=== PATIENT | female | born 1975 | race African-American/Black ===

== ENCOUNTER 2016-12-29 01:20 | Emergency (ER) | payer BC ==
[2016-12-29] MEDS ORDERED: NORMAL SALINE 1000 ML 1,000 ML IV ONE (05:00)
[2016-12-29] MEDS ORDERED: ONDANSETRON HCL INJ/PF 4 MG/2 ML SDV IV ONE (05:00)
--- NOTE | 2016-12-29 05:02 | ER Document Report ---
ED General - General Chief Complaint: Abdominal Pain Stated Complaint: CHEST PAIN/ABDOMINAL PAIN Time seen by provider: 05:00 Notes: Patient is a 41-year-old female that comes emergency department for chief complaint of vomiting, pain in her upper abdomen, and body aches for 2 days. Patient states 2 days ago she also had a fever. Patient denies flank pain, dysuria, chest pain, hematemesis or hematochezia. Patient states she is currently being treated for H. pylori. [facility] this week. TRAVEL OUTSIDE OF THE [place] IN LAST 30 DAYS: No - Related Data Allergies/Adverse Reactions: No Known Allergies Allergy (Unverified 03/19/13 07:08) Past Medical History - General Information source: Patient - Social History Smoking Status: Never Smoker Frequency of alcohol use: None Drug Abuse: None Lives with: Family Family History: Reviewed & Not Pertinent Patient has suicidal ideation: No Patient has homicidal ideation: No - Past Medical History Cardiac Medical History: Reports: Hx Hypertension Endocrine Medical History: Reports: Hx Diabetes Mellitus Type 2 Renal/ Medical History: Denies: Hx Peritoneal Dialysis Past Surgical History: Reports: Hx Appendectomy, Hx Section - Immunizations Hx Diphtheria, Pertussis, Tetanus Vaccination: Yes - 2011 Review of Systems - Review of Systems Constitutional: See HPI EENT: No symptoms reported Cardiovascular: No symptoms reported Respiratory: No symptoms reported Gastrointestinal: See HPI Genitourinary: No symptoms reported Female Genitourinary: No symptoms reported Musculoskeletal: No symptoms reported Skin: No symptoms reported Hematologic/Lymphatic: No symptoms reported Neurological/Psychological: No symptoms reported Physical Exam - Vital signs Vitals: Temp Pulse Resp BP Pulse Ox 97.9 F 81 16 139/105 H 97 12/29/16 01:37 12/29/16 01:37 12/29/16 01:37 12/29/16 01:37 12/29/16 01:37 Interpretation: Normal - General General appearance: Appears well, Alert In distress: None - HEENT Head: Normocephalic, Atraumatic Eyes: Normal Conjunctiva: Normal Extraocular movements intact: Yes Eyelashes: Normal Pupils: PERRL Sinus: Normal Nasal: Normal Mouth/Lips: Normal Mucous membranes: Normal Pharynx: Normal Neck: Normal - Respiratory Respiratory status: No respiratory distress Chest status: Nontender Breath sounds: Normal. No: Decreased air movement, Wheezing Chest palpation: Normal - Cardiovascular Rhythm: Regular, Tachycardia Heart sounds: Normal auscultation, S1 appreciated, S2 appreciated Murmur: No - Abdominal Inspection: Normal Distension: No distension Bowel sounds: Normal Tenderness: Tender - There is some generalized upper abdominal tenderness, nonspecific, no guarding. No: Sam's sign, Guarding - Back Back: Normal, Nontender. No: Tender, CVA tenderness - Extremities General upper extremity: Normal inspection, Nontender, Normal color, Normal ROM , Normal temperature General lower extremity: Normal inspection, Nontender, Normal color, Normal ROM , Normal temperature, Normal weight bearing. No: Mira's sign - Neurological Neuro grossly intact: Yes Cognition: Normal Orientation: AAOx4 [place] Coma Scale Eye Opening: Spontaneous Ramu Coma Scale Verbal: Oriented [place] Coma Scale Motor: Obeys Commands Ramu Coma Scale Total: 15 Speech: Normal Motor strength normal: LUE, RUE, LLE, RLE Sensory: Normal - Psychological Associated symptoms: Normal affect, Normal mood - Skin Skin Temperature: Warm Skin Moisture: Dry Skin Color: Normal Course - Re-evaluation Re-evalutation: Patient is very mild epigastric tenderness on exam, otherwise unremarkable abdomen, she is alert, she is well-appearing, no tachycardia, no hypotension, no fever. CBC unremarkable, urinalysis shows slightly elevated specific gravity and is otherwise unremarkable. Influenza negative. Chemistries unremarkable. Lipase is unremarkable. Patient well appearing on reexamination after IV fluids and medications. Discussed workup. Patient could have a viral syndrome, concerning abnormalities noted, very low suspicion of acute abdomen. Providing symptom management, discussed primary care follow-up and return precautions. Patient states understanding and agreement. - Vital Signs Vital signs: Temp Pulse Resp BP Pulse Ox 97.4 F 68 18 116/67 97 12/29/16 08:42 12/29/16 08:42 12/29/16 08:42 12/29/16 08:42 12/29/16 08:42 - Laboratory Result Diagrams: 12/29/16 04:57 12/29/16 07:30 Laboratory results interpreted by me: 12/29/16 12/29/16 04:57 07:30 RDW 14.3 H Monocytes % 13.4 H Sodium 135.8 L Discharge - Discharge Clinical Impression: Abdominal pain Qualifiers: Abdominal location: upper abdomen, unspecified Qualified Code(s): R10.10 - Upper abdominal pain, unspecified Vomiting Qualifiers: Vomiting type: unspecified Vomiting Intractability: non-intractable Nausea presence: with nausea Qualified Code(s): R11.2 - Nausea with vomiting, unspecified Condition: Stable Disposition: HOME, SELF-CARE Additional Instructions: Your lab workup shows some dehydration but no other abnormalities. Continue to rehydrate, rest, start with bland food, take the pain medication and nausea medication as directed if needed. Follow-up with primary care for additional management. Return to emergency department for any concerning worsening symptoms including uncontrollable vomiting, severe abdominal pain, etc. Prescriptions: Hydrocodone/Acetaminophen [[place] 5-325 mg Tablet] 1 - 2 tab PO ASDIR #12 tablet Promethazine HCl [Phenergan 25 mg Tablet] 1 - 2 tab PO Q6H PRN #15 tablet PRN Reason: Forms: Return to Work
[2016-12-29 05:14] LABS: ABSOLUTE EOSINOPHILS # (AUTO) 0.1 10^3/uL (0.0-0.6); ABSOLUTE MONOCYTES (AUTO) 0.7 10^3/uL (0.1-1.4); ABSOLUTE NEUT (AUTO) 2.7 10^3/uL (1.7-8.2); BASOPHILS % (AUTO) 0.6 % (0-2); HEMATOCRIT 43.2 % (36.0-47.0); HEMOGLOBIN 14.6 g/dL (12.0-15.5); HGB HCT DIFFERENCE 0.6; LYMPHOCYTES % (AUTO) 36.1 % (13-45); MEAN CORPUSCULAR HEMOGLOBIN 28.2 pg (27.0-33.4); MEAN CORPUSCULAR HGB CONC 33.8 g/dL (32.0-36.0); MEAN CORPUSCULAR VOLUME 83 fl (80-97); MONOCYTES % (AUTO) 13.4 % (3-13); RED BLOOD COUNT 5.18 10^6/uL (3.72-5.28); RED CELL DISTRIBUTION WIDTH 14.3 % (11.5-14.0); SEGMENTED NEUTROPHILS % (AUTO) 48.9 % (42-78); WHITE BLOOD COUNT 5.6 10^3/uL (4.0-10.5)
[2016-12-29 05:23] LABS: BILIRUBIN,URINE NEGATIVE (NEGATIVE); GLUCOSE, URINE NEGATIVE (NEGATIVE); KETONES,URINE NEGATIVE (NEGATIVE); LEUKOCYTE ESTERASE,URINE NEGATIVE (NEGATIVE); NITRITE,URINE NEGATIVE (NEGATIVE); PROTEIN,URINE NEGATIVE (NEGATIVE); UROBILINOGEN,URINE NEGATIVE mg/dL (<2.0)
[2016-12-29 05:33] LABS: APPEARANCE,URINE CLEAR; URINE SPECIFIC GRAVITY 1.022
[2016-12-29] MEDS ORDERED: OXYCODONE-ACETAMINOPHEN 5-325 MG TABLET PO ONE (06:19)
[2016-12-29] MEDS ORDERED: SUCRALFATE 1 GM TABLET PO ONE (06:19)
[2016-12-29 07:58] LABS: ALANINE AMINOTRANSFERASE 26 U/L (9-52); ALBUMIN 3.5 g/dL (3.5-5.0); ALKALINE PHOSPHATASE 71 U/L (38-126); ANION GAP 7 (5-19); ASPARTATE AMINO TRANSFERASE 16 U/L (14-36); BILIRUBIN,TOTAL 0.8 mg/dL (0.2-1.3); BLOOD UREA NITROGEN 16 mg/dL (7-20); CALCIUM 8.8 mg/dL (8.4-10.2); CARBON DIOXIDE 28 mmol/L (22-30); CHLORIDE 101 mmol/L (98-107); CREATININE RESULT 0.56 mg/dL (0.52-1.25); GLUCOSE 101 mg/dL (75-110); LIPASE 114.7 U/L (23-300); SODIUM 135.8 mmol/L (137-145); TOTAL PROTEIN 7.3 g/dL (6.3-8.2)
--- NOTE | 2016-12-29 08:21 | EKG REPORT ---
SEVERITY:- BORDERLINE ECG - SINUS RHYTHM PROBABLE LEFT ATRIAL ABNORMALITY : Confirmed by: Skyler Davis 29-Dec-2016 08:20:50
[2016-12-29 08:43] VITALS: BP 116/67
== END 2016-12-29 08:43 | disposition home or self-care (01) ==
LOC: ER 01:20
DX: A04.8 Other specified bacterial intestinal infections (principal); R10.10 Upper abdominal pain, unspecified; R10.816 Epigastric abdominal tenderness; R11.2 Nausea with vomiting, unspecified; R50.9 Fever, unspecified; I10 Essential (primary) hypertension; E11.9 Type 2 diabetes mellitus without complications; R00.0 Tachycardia, unspecified; Z90.49 Acquired absence of other specified parts of digestive tract
CPT/HCPCS: 93005; 99284; 96361; 96374; 36415; 83690; 85025; 81025; 80053; 81001; 87804; 93010; J2405; J7030

== ENCOUNTER → 2017-05-11 | Outpatient (CLI) | payer BC, MEDICAID ==
--- NOTE | 2017-05-11 12:21 | WOMENS IMAGING REPORT ---
EXAM DESCRIPTION: BILAT SCREENING MAMMO W/CAD COMPLETED DATE/TIME: 05/11/2017 8:42 am REASON FOR STUDY: Z12.31, ROUTINE SCREENING MAMMO Z12.31 ENCNTR SCREEN MAMMOGRAM FOR MALIGNANT NEOP LASM OF YOBANY COMPARISON: 2009 to 2015 TECHNIQUE: Standard craniocaudal and mediolateral oblique views of each breast recorded using [employer] acquisition. LIMITATIONS: None. FINDINGS: No masses, calcifications or architectural distortion. No areas of suspicion. Read with the assistance of CAD. .[facility] - R2 Cenova Version 1.3 .[facility] - R2 Cenova Version 1.3 .[facility] - R2 Cenova Version 2.4 .[facility] [place]2 Cenova Version 2.4 .[facility] - R2 [employer] Version 9.2 IMPRESSION: NORMAL MAMMOGRAM. BIRADS 1. BREAST DENSITY: b. There are scattered areas of fibroglandular density. BIRAD: 1 NEGATIVE RECOMMENDATION: ROUTINE SCREENING COMMENT: The patient has been notified of the results by letter per SA requirements. Additional no tification policies are in place for contacting patient with suspicious or incomplete findings. Quality ID #[id number]: The [employer] recommends an annual screening mammogram for women aged 40 years or over. This facility utilizes a reminder system to ensure that all patients receive reminder letters, and/or direct phone calls for appointments. This includes reminders for routine scr eening mammograms, diagnostic mammograms, or other Breast Imaging Interventions when appropriate. Th is patient will be placed in the appropriate reminder system. The [employer] (ACR) has developed recommendations for screening MRI of the breast s in certain patient populations, to be used in conjunction with mammography. Breast MRI surveillanc e may be appropriate for women with more than 20% lifetime risk of developing breast cancer as deter mined by genetic testing, significant family history of the disease, or history of mantle radiation f or Hodgkins Disease. ACR Practice Guidelines 2008. TECHNICAL DOCUMENTATION: FINDING NUMBER: (1) ASSESSMENT: (1) JOB ID: [id number] [employer]- All Rights Reserved
== END ==
LOC: WI 08:37
PROVIDERS: ATTEND Physician Assistant Medical
DX: Z12.31 Encounter for screening mammogram for malignant neoplasm of breast (principal)
CPT/HCPCS: 77067; G0202

== ENCOUNTER 2017-06-29 07:41 | Emergency (ER) | payer BC ==
--- NOTE | 2017-06-29 09:21 | ER Document Report ---
ED General - General Chief Complaint: General Weakness Stated Complaint: WEAKNESS,BLURRED VISION,ARM NUMBNESS Time Seen by Provider: 06/29/17 08:01 Mode of Arrival: Ambulatory Information source: Patient Notes: 42-year-old female presents with complaints of generalized weakness numbness in her hands episode where she felt like she was in the past I will got lightheaded and dizzy. Patient notes she has not eaten today, was at work, this episode started and before she actually passed out she was given juice and food and her symptoms resolved. Patient denies any other complaints at this time except for tingling in her left hand TRAVEL OUTSIDE OF THE [place] IN LAST 30 DAYS: No - HPI Onset: Just prior to arrival Onset/Duration: Sudden Quality of pain: No pain Severity: Mild Associated symptoms: Weakness Exacerbated by: Denies Relieved by: Denies Similar symptoms previously: No Recently seen / treated by doctor: No - Related Data Allergies/Adverse Reactions: No Known Allergies Allergy (Verified 06/29/17 08:07) Past Medical History - Social History Smoking Status: Never Smoker Cigarette use (# per day): No Chew tobacco use (# tins/day): No Smoking Education Provided: No Frequency of alcohol use: None Drug Abuse: None Family History: Reviewed & Not Pertinent - Past Medical History Cardiac Medical History: Reports: Hx Hypertension Endocrine Medical History: Reports: Hx Diabetes Mellitus Type 2 Renal/ Medical History: Denies: Hx Peritoneal Dialysis Past Surgical History: Reports: Hx Appendectomy, Hx Section - Immunizations Hx Diphtheria, Pertussis, Tetanus Vaccination: Yes - 2011 Review of Systems - Review of Systems Notes: REVIEW OF SYSTEMS: CONSTITUTIONAL : Denies fever, chills, or sweats. Denies recent illness. EENT: Denies eye, ear, throat, or mouth pain or symptoms. Denies nasal or sinus congestion or discharge. Denies throat, tongue, or mouth swelling or difficulty swallowing. CARDIOVASCULAR: Denies chest pain. Denies palpitations or racing or irregular heart beat. Denies ankle edema. RESPIRATORY: Denies cough, cold, or chest congestion. Denies shortness of breath, difficulty breathing, or wheezing. GASTROINTESTINAL: Denies abdominal pain or distention. Denies nausea, vomiting , or diarrhea. Denies blood in vomitus, stools, or per rectum. Denies black, tarry stools. Denies constipation. GENITOURINARY: Denies difficulty urinating, painful urination, burning, frequency, blood in urine, or discharge. FEMALE GENITOURINARY: Denies vaginal bleeding, heavy or abnormal periods, irregular periods. Denies vaginal discharge or odor. MUSCULOSKELETAL: Denies back or neck pain or stiffness. Denies joint pain or swelling. SKIN: Denies rash, lesions or sores. HEMATOLOGIC : Denies easy bruising or bleeding. LYMPHATIC: Denies swollen, enlarged glands. NEUROLOGICAL: Admits to tingling in extremities dizziness lightheadedness PSYCHIATRIC: Denies anxiety or stress. Denies depression, suicidal ideation, or homicidal ideation. ALL OTHER SYSTEMS REVIEWED AND NEGATIVE. PHYSICAL EXAMINATION: GENERAL: Well-appearing, well-nourished and in no acute distress. HEAD: Atraumatic, normocephalic. EYES: Pupils equal round and reactive to light, extraocular movements intact, conjunctiva are normal. ENT: Nares patent, oropharynx clear without exudates. Moist mucous membranes. NECK: Normal range of motion, supple without lymphadenopathy LUNGS: Breath sounds clear to auscultation bilaterally and equal. No wheezes rales or rhonchi. HEART: Regular rate and rhythm without murmurs ABDOMEN: Soft, nontender, nondistended abdomen. No guarding, no rebound. No masses appreciated. Female : deferred Musculoskeletal: Normal range of motion, no pitting or edema. No cyanosis. NEUROLOGICAL: Cranial nerves grossly intact. Normal speech, normal gait. Normal sensory, motor exams PSYCH: Normal mood, normal affect. SKIN: Warm, Dry, normal turgor, no rashes or lesions noted. Dictation was performed using [employer] voice recognition software Physical Exam - Vital signs Vitals: Temp Pulse Resp BP Pulse Ox 98.2 F 66 20 113/54 L 98 06/29/17 07:44 06/29/17 07:44 06/29/17 07:44 06/29/17 07:44 06/29/17 07:44 Course - Re-evaluation Re-evalutation: 06/29/17 09:21 Patient had probable hypoglycemic event which resolved after juice and food. At this time she is completely asymptomatic, she did note a headache over the past 3 days which she states is her chronic migraine headaches but did not have one today. 06/29/17 10:50 06/29/17 11:26 Labwork looks fine patient appears to have a hypoglycemic event since everything is resolved after she was fed. She will be discharged at this time with close follow-up After performing a Medical Screening Examination, I estimate there is LOW risk for RUPTURED ESOPHAGUS, PNEUMOTHORAX, PULMONARY EMBOLISM, ACUTE CORONARY SYNDROME, OR THORACIC AORTIC DISSECTION, thus I consider the discharge disposition reasonable. I have reevaluated this patient multiple times and no significant life threatening changes are noted. The patient and I have discussed the diagnosis and risks, and we agree with discharging home with close follow-up. We also discussed returning to the Emergency Department immediately if new or worsening symptoms occur. We have discussed the symptoms which are most concerning (e.g., bloody sputum, worsening pain or shortness of breath) that necessitate immediate return. - Vital Signs Vital signs: Temp Pulse Resp BP Pulse Ox 98.2 F 66 20 113/54 L 98 06/29/17 07:44 06/29/17 07:44 06/29/17 07:44 06/29/17 07:44 06/29/17 07:44 - Laboratory Result Diagrams: 06/29/17 08:31 06/29/17 10:04 Laboratory results interpreted by me: 06/29/17 06/29/17 08:31 10:04 RDW 14.8 H Total Protein 8.7 H - Diagnostic Test Radiology reviewed: Image reviewed, Reports reviewed - EKG Interpretation by Me EKG shows normal: Sinus rhythm, [place], Intervals, QRS Complexes When compared to previous EKG there are: No significant change, Other - 2nd ekg same Discharge - Discharge Clinical Impression: Dizziness, Lightheadedness Condition: Stable Disposition: HOME, SELF-CARE Instructions: Dizziness ([facility]) Additional Instructions: Follow up with your physician tomorrow for further care or return to the ED IMMEDIATELY if symptoms worsen or new concerns occur. If you cannot afford to follow up with your primary care physician a list of low cost clinics have been provided at the end of your discharge papers as well.
[2017-06-29 09:25] LABS: ABSOLUTE BASOPHILS # (AUTO) 0.1 10^3/uL (0.0-0.2); ABSOLUTE LYMPHOCYTES (AUTO) 1.7 10^3/uL (0.5-4.7); ABSOLUTE MONOCYTES (AUTO) 0.5 10^3/uL (0.1-1.4); ABSOLUTE NEUT (AUTO) 2.6 10^3/uL (1.7-8.2); BASOPHILS % (AUTO) 1.1 % (0-2); EOSINOPHILS % (AUTO) 0.5 % (0-6); HEMATOCRIT 41.4 % (36.0-47.0); HGB HCT DIFFERENCE 0.6; LYMPHOCYTES % (AUTO) 34.9 % (13-45); MEAN CORPUSCULAR HGB CONC 33.7 g/dL (32.0-36.0); MEAN CORPUSCULAR VOLUME 86 fl (80-97); RED BLOOD COUNT 4.81 10^6/uL (3.72-5.28); RED CELL DISTRIBUTION WIDTH 14.8 % (11.5-14.0); SEGMENTED NEUTROPHILS % (AUTO) 53.5 % (42-78); WHITE BLOOD COUNT 4.9 10^3/uL (4.0-10.5)
[2017-06-29 10:33] LABS: ALANINE AMINOTRANSFERASE 26 U/L (9-52); ALBUMIN 4.6 g/dL (3.5-5.0); ALKALINE PHOSPHATASE 71 U/L (38-126); ANION GAP 14 (5-19); ASPARTATE AMINO TRANSFERASE 19 U/L (14-36); BILIRUBIN,DIRECT 0.3 mg/dL (0.0-0.4); BILIRUBIN,TOTAL 1.1 mg/dL (0.2-1.3); BLOOD UREA NITROGEN 20 mg/dL (7-20); CALCIUM 9.9 mg/dL (8.4-10.2); CARBON DIOXIDE 23 mmol/L (22-30); CHLORIDE 100 mmol/L (98-107); CREATININE RESULT 0.65 mg/dL (0.52-1.25); GLUCOSE 87 mg/dL (75-110); POTASSIUM 4.4 mmol/L (3.6-5.0); SODIUM 137.3 mmol/L (137-145); TOTAL PROTEIN 8.7 g/dL (6.3-8.2)
[2017-06-29 11:40] VITALS: BP 105/60
--- NOTE | 2017-06-29 12:33 | EKG REPORT ---
SEVERITY:- ABNORMAL ECG - SINUS RHYTHM CONSIDER LEFT VENTRICULAR HYPERTROPHY ST ELEVATION IS NONSPECIFIC , LIKELY NORMAL VARAINT : Confirmed by: Mohinder Jennings MD 29-Jun-2017 12:33:06
--- NOTE | 2017-06-29 12:34 | EKG REPORT ---
SEVERITY:- ABNORMAL ECG - SINUS RHYTHM ST ELEVATION SUGGESTS NORMAL VARIANT. : Confirmed by: Mohinder Jennings MD 29-Jun-2017 12:33:50
== END 2017-06-29 11:35 | disposition home or self-care (01) ==
LOC: ER 07:41
DX: R42 Dizziness and giddiness (principal); R53.1 Weakness; H53.8 Other visual disturbances; R20.0 Anesthesia of skin
CPT/HCPCS: 36415; 80053; 82962; 85025; 93005; 93010; 99285

== ENCOUNTER 2018-04-27 03:46 | Emergency (ER) | payer BC ==
--- NOTE | 2018-04-27 05:25 | ER Document Report ---
Doctor's Note Notes: 04/27/18 05:22 I performed a quick triage evaluation the patient. Patient is a pleasant 43- year-old female presents with complaints of dizziness. She has been having recurrent dizziness now for a few days. Says occasionally she will have some blurred vision associated with it. She says it can happen randomly whether she is standing or sitting. Tonight she is getting ready for work and started to feel dizzy again. She did not pass out. She did stumble and fall and hurt her right elbow. She denies any headache. She denies any focal weakness or numbness. She has no other complaints at this time. She says that she has had heavier than normal menstrual periods as of recently. She also has been under some stress. I have ordered baseline blood work as well as urinalysis. On exam patient is neurologically intact without any focal neurologic deficits. She looks well. She does have a systolic heart murmur which she says is chronic and she has been told about several times in the past.
[2018-04-27 05:34] LABS: ABSOLUTE EOSINOPHILS # (AUTO) 0.1 10^3/uL (0.0-0.6); ABSOLUTE LYMPHOCYTES (AUTO) 1.7 10^3/uL (0.5-4.7); ABSOLUTE MONOCYTES (AUTO) 0.4 10^3/uL (0.1-1.4); ABSOLUTE NEUT (AUTO) 1.4 10^3/uL (1.7-8.2); BASOPHILS % (AUTO) 0.9 % (0-2); EOSINOPHILS % (AUTO) 3.5 % (0-6); HEMATOCRIT 38.2 % (36.0-47.0); LYMPHOCYTES % (AUTO) 47.1 % (13-45); MEAN CORPUSCULAR HEMOGLOBIN 28.2 pg (27.0-33.4); MEAN CORPUSCULAR VOLUME 83 fl (80-97); MONOCYTES % (AUTO) 11.4 % (3-13); PLATELET COUNT 296 10^3/uL (150-450); RED BLOOD COUNT 4.61 10^6/uL (3.72-5.28); RED CELL DISTRIBUTION WIDTH 13.9 % (11.5-14.0); SEGMENTED NEUTROPHILS % (AUTO) 37.1 % (42-78); TOTAL CELLS COUNTED % (AUTO) 100 %; WHITE BLOOD COUNT 3.7 10^3/uL (4.0-10.5)
[2018-04-27 05:44] LABS: APPEARANCE,URINE SLIGHTLY-CLOUDY; BILIRUBIN,URINE NEGATIVE (NEGATIVE); COLOR,URINE YELLOW; GLUCOSE, URINE NEGATIVE (NEGATIVE); KETONES,URINE NEGATIVE (NEGATIVE); LEUKOCYTE ESTERASE,URINE NEGATIVE (NEGATIVE); NITRITE,URINE NEGATIVE (NEGATIVE); PROTEIN,URINE NEGATIVE (NEGATIVE); URINE SPECIFIC GRAVITY 1.027; UROBILINOGEN,URINE NEGATIVE mg/dL (<2.0)
[2018-04-27 05:49] LABS: ALANINE AMINOTRANSFERASE 28 U/L (9-52); ALBUMIN 3.7 g/dL (3.5-5.0); ALKALINE PHOSPHATASE 66 U/L (38-126); ANION GAP 9 (5-19); ASPARTATE AMINO TRANSFERASE 20 U/L (14-36); BILIRUBIN,DIRECT 0.2 mg/dL (0.0-0.4); BILIRUBIN,TOTAL 0.9 mg/dL (0.2-1.3); BLOOD UREA NITROGEN 13 mg/dL (7-20); CALCIUM 9.1 mg/dL (8.4-10.2); CARBON DIOXIDE 31 mmol/L (22-30); CHLORIDE 104 mmol/L (98-107); GLUCOSE 102 mg/dL (75-110); POTASSIUM 3.4 mmol/L (3.6-5.0); SODIUM 144.1 mmol/L (137-145); TOTAL PROTEIN 7.1 g/dL (6.3-8.2)
--- NOTE | 2018-04-27 06:26 | ER Document Report ---
ED General - General Chief Complaint: Near Syncope Stated Complaint: FALL, HEAD PAIN, VISION BLURRY Time Seen by Provider: 04/27/18 05:14 Notes: The patient is a 43-year-old female, past medical history hypertension, presents after an episode of lightheadedness and blurry version earlier today that started after she woke up. She tripped down some stairs and landed on her right elbow. She is having mild pain when she extends her right elbow, but denies current lightheadedness or blurry vision. She has had these symptoms for many months and says she feels this way when her blood pressure is high or low. She is recently switched to hydrochlorthiazide 25 mg and amlodipine 10 mg by her primary 2 weeks ago. Patient denies syncope, chest pain, shortness of breath, LOC, neck pain, head injury, chest pain, shortness of breath, leg swelling, numbness, tingling, fevers or hemoptysis. TRAVEL OUTSIDE OF THE [place] IN LAST 30 DAYS: No - Related Data Allergies/Adverse Reactions: No Known Allergies Allergy (Verified 06/29/17 08:07) Past Medical History - General Information source: Patient - Social History Smoking Status: Unknown if Ever Smoked Family History: Reviewed & Not Pertinent - Past Medical History Cardiac Medical History: Reports: Hx Hypertension Endocrine Medical History: Reports: Hx Diabetes Mellitus Type 2 Renal/ Medical History: Denies: Hx Peritoneal Dialysis Past Surgical History: Reports: Hx Appendectomy, Hx Section - Immunizations Hx Diphtheria, Pertussis, Tetanus Vaccination: Yes - 2011 Review of Systems - Review of Systems Notes: REVIEW OF SYSTEMS: CONSTITUTIONAL: -fevers, -chills EENT: -eye pain, -difficulty swallowing, -nasal congestion CARDIOVASCULAR: -chest pain, -syncope. RESPIRATORY: -cough, -SOB GASTROINTESTINAL: -abdominal pain, -nausea, -vomiting, -diarrhea GENITOURINARY: -dysuria, -hematuria MUSCULOSKELETAL: +right elbow pain, -back pain, -neck pain SKIN: -rash or skin lesions. HEMATOLOGIC: -easy bruising or bleeding. LYMPHATIC: -swollen, enlarged glands. NEUROLOGICAL: -altered mental status or loss of consciousness, -headache, - neurologic symptoms PSYCHIATRIC: -anxiety, -depression. ALL OTHER SYSTEMS REVIEWED AND NEGATIVE. Physical Exam - Vital signs Vitals: Temp Pulse Resp BP Pulse Ox 97.9 F 72 18 144/84 H 97 06/12/18 03:52 04/27/18 03:52 04/27/18 03:52 04/27/18 03:52 04/27/18 03:52 - Notes Notes: PHYSICAL EXAMINATION: GENERAL: Well-appearing, well-nourished and in no acute distress. HEAD: Atraumatic, normocephalic. EYES: Pupils equal round and reactive to light, extraocular movements intact, sclera anicteric, conjunctiva are normal. ENT: nares patent, oropharynx clear without exudates. Moist mucous membranes. NECK: Normal range of motion, supple without lymphadenopathy LUNGS: Breath sounds clear to auscultation bilaterally and equal. No wheezes rales or rhonchi. HEART: Regular rate and rhythm with systolic murmur ABDOMEN: Soft, nontender, normoactive bowel sounds. No guarding, no rebound. No masses appreciated. EXTREMITIES: Mild tenderness over right lateral elbow, Normal range of motion, no pitting or edema. No cyanosis. NEUROLOGICAL: Cranial nerves grossly intact. Normal speech, normal gait. Normal sensory and motor exams. PSYCH: Normal mood, normal affect. SKIN: Warm, Dry, normal turgor, no rashes or lesions noted. Course - Re-evaluation Re-evalutation: Pt appears well. Her blood work is unremarkable, other than slight hypokalemia , which was repleted in the emergency room. Her EKG does not show any arrhythmias or evidence of prolonged QT syndrome, [place] or WPW. Right elbow x- ray does not show any acute fractures. Patient does have a chronic systolic murmur, but has never seen a heading matcher and assembler for an echo and further workup. With her years of near syncope with a systolic murmur, will refer her to cardiology for further evaluation and treatment. - Vital Signs Vital signs: Temp Pulse Resp BP Pulse Ox 97.9 F 72 18 144/84 H 97 04/27/18 03:52 04/27/18 03:52 04/27/18 03:52 04/27/18 03:52 04/27/18 03:52 - Laboratory Result Diagrams: 04/27/18 05:20 04/27/18 05:20 Laboratory results interpreted by me: 04/27/18 04/27/18 05:20 05:20 WBC 3.7 L Seg Neutrophils % 37.1 L Lymphocytes % 47.1 H Absolute Neutrophils 1.4 L Potassium 3.4 L Carbon Dioxide 31 H - Diagnostic Test Radiology reviewed: Image reviewed, Reports reviewed Radiology results interpreted by me: Right elbow x-ray: NAD - EKG Interpretation by Me EKG shows normal: Sinus rhythm, [place], Intervals, QRS Complexes, ST-T Waves Rate: Normal Discharge - Discharge Clinical Impression: Near syncope Contusion of right elbow Qualifiers: Encounter type: initial encounter Qualified Code(s): S50.01XA - Contusion of right elbow, initial encounter Condition: Stable Additional Instructions: You should follow-up with the heading matcher and assembler for further evaluation of your murmur. Return to the ER if you have any worsening symptoms or any other concerns. NEAR SYNCOPAL EPISODE: Syncope or near syncope (fainting or near-fainting) can occur from many different health problems. Or it can be a simple fainting spell requiring no treatment. It is safe for you to go home, but further evaluation will likely be necessary. Your work-up may include tests for internal bleeding, heart disease, medication problems, or near-strokes. Tests are not always required, however, depending on the nature of your problem. The warning signs of an impending faint include: dizziness, lightheadedness , nausea, hot flashes, tingling, and weakness. If this happens, lay down and put your feet up, then wait until all of these symptoms have passed before standing up again. If these episodes become recurrent, or if you develop chest pain, heart palpitations, mental confusion, blurred vision, or headache, then you should call the physician, or go to the emergency room. NORMAL EXAM AND WORKUP: At this time, your examination and workup show no significant abnormality. No significant abnormal physical findings were noted. All laboratory, EKG, and imaging (x-ray, CT scans, ultrasound) studies that were ordered show no significant abnormality. Although your examination and all studies that were ordered showed no significant abnormal finding, there are no examinations and no studies that are 100% accurate. There is always the possibility that some abnormality could exist and not be detected with physical examination or within the limits and capabilities of laboratory and other studies. You should return or follow up as you were instructed on your visit today for further evaluation if your symptoms do not resolve. FOLLOW-UP CARE: If you have been referred to a physician for follow-up care, call the physician s office for an appointment as you were instructed or within the next two days. If you experience worsening or a significant change in your symptoms, notify the physician immediately or return to the Emergency Department at any time for re-evaluation. Contusion Your injury has resulted in a contusion -- a crushing of the deep tissues. No injury to important structures was detected during the physician's exam. Contusions vary in the amount of pain they cause, and in the length of time required for healing. Typically, the area will become bruised, and will remain painful to touch for two or three weeks. However, most patients are back to working and playing within a few days. After the initial period of rest and cold-packs, your symptoms (together with the doctor's recommendations) will determine how rapidly you can get back to full activity. Usually this means "do what feels okay, but don't do things that hurt." If re-examination was recommended, it's important to follow up as instructed. Call the doctor or return any time if pain increases, if swelling becomes severe, if you develop numbness or weakness in an injured extremity, or if any other alarming symptoms occur. Forms: Elevated Blood Pressure, Return to Work Referrals: MARTITA BIRMINGHAM MD [ACTIVE STAFF] - Follow up as needed
--- NOTE | 2018-04-27 06:55 | RADIOLOGY REPORT (SQ) ---
EXAM DESCRIPTION: XR ELBOW 3 VIEWS COMPLETED DATE/TME: 04/27/2018 06:19 CLINICAL HISTORY: 43 years, Female, right elbow injury COMPARISON: None. FINDINGS: 3 views of the right elbow. No acute fracture or dislocation. Normal osseous mineralization. No joint effusion. IMPRESSION: No acute fracture or dislocation. 2011 [employer]- All Rights Reserved
[2018-04-27] MEDS ORDERED: POTASSIUM CHLORIDE 10 MEQ TABLET.SA PO ONE (06:56)
[2018-04-27 07:28] VITALS: BP 116/72
--- NOTE | 2018-04-27 07:35 | EKG REPORT ---
SEVERITY:- BORDERLINE ECG - SINUS RHYTHM BORDERLINE R WAVE PROGRESSION, ANTERIOR LEADS : Confirmed by: Mohinder Jennings MD 27-Apr-2018 07:35:12
== END 2018-04-27 07:20 | disposition home or self-care (01) ==
LOC: ER 03:46
DX: R55 Syncope and collapse (principal); S50.01XA Contusion of right elbow, initial encounter; H53.8 Other visual disturbances; W10.9XXA Fall (on) (from) unspecified stairs and steps, initial encounter; I10 Essential (primary) hypertension; E11.9 Type 2 diabetes mellitus without complications
CPT/HCPCS: 36415; 80053; 81001; 81025; 85025; 93005; 93010; 99284

== ENCOUNTER 2018-09-10 17:45 | Emergency (ER) | payer BC ==
[2018-09-10] MEDS ORDERED: IBUPROFEN 800 MG TABLET PO ONE (22:17)
--- NOTE | 2018-09-10 22:22 | ER Document Report ---
HPI - HPI Patient complains to provider of: Pain right foot ankle and left knee after fall Onset: This afternoon Onset/Duration: Sudden Quality of pain: Achy, Sharp Severity: Moderate Pain Level: 3 Context: 42-year-old female presented to ED for complaint of right foot and ankle and left knee pain since about 2:00 today when she fell. She states she was walking and veggies help in her parents into the house when her foot wobble back and forth and then she fell. She states her left knee hit the floor. She states it is very painful to walk now. States she took 200 mg of ibuprofen about 2:00 and is not had anything since then. States she has not elevated her ice the ankle. Patient is alert and oriented respirations regular and unlabored speaking in full sentences walking with a even steady gait. Associated Symptoms: Other - Pain swelling to right foot and ankle pain and left knee Exacerbated by: Standing, Movement, Walking Relieved by: Denies Similar symptoms previously: Yes Recently seen / treated by doctor: No - ROS ROS below otherwise negative: Yes - CONSTITUTIONAL Constitutional: DENIES: Fever, Chills - EENT EENT: DENIES: Sore Throat, Ear Pain, Nasal Drainage-Clear, Nasal Drainage- Purulent, Congestion, Eye problems - NEURO Neurology: DENIES: Headache, Weakness, Vision blurred, Dizzinesss / Vertigo - CARDIOVASCULAR Cardiovascular: DENIES: Chest pain - RESPIRATORY Respiratory: DENIES: Trouble Breathing, Coughing - GASTROINTESTINAL Gastrointestinal: DENIES: Abdominal Pain, Nausea, Patient vomiting, Diarrhea, Constipation, Black / Bloody Stools - URINARY Urinary: DENIES: Dysuria, Urgency, Frequency - REPRODUCTIVE Reproductive: DENIES: :, Postmenopausal, Abnormal bleeding / discharge - MUSCULOSKELETAL Musculoskeletal: REPORTS: Extremity pain - right foot and ankl, left knee - DERM Skin Color: Ecchymosis - Right foot and ankle Skin Problems: None Past Medical History - General Information source: Patient - Social History Smoking Status: Never Smoker Cigarette use (# per day): No Chew tobacco use (# tins/day): No Smoking Education Provided: No Frequency of alcohol use: None Drug Abuse: None Lives with: Family Family History: Reviewed & Not Pertinent Patient has suicidal ideation: No Patient has homicidal ideation: No - Past Medical History Cardiac Medical History: Reports: Hx Hypertension Pulmonary Medical History: Reports: None EENT Medical History: Reports: None Neurological Medical History: Reports: None Endocrine Medical History: Reports: Hx Diabetes Mellitus Type 2 - "prediabetic" Renal/ Medical History: Reports: None Malignancy Medical History: Reports: None GI Medical History: Reports: None Musculoskeletal Medical History: Reports None Skin Medical History: Reports None Psychiatric Medical History: Reports: None Traumatic Medical History: Reports: None Infectious Medical History: Reports: None Past Surgical History: Reports: Hx Appendectomy, Hx Section - Immunizations Hx Diphtheria, Pertussis, Tetanus Vaccination: Yes - 2011 [facility] Provider Document - CONSTITUTIONAL Agree With Documented VS: Yes Exam Limitations: No Limitations General Appearance: WD/WN, No Apparent Distress - INFECTION CONTROL TRAVEL OUTSIDE OF THE [place] IN LAST 30 DAYS: No - HEENT HEENT: Atraumatic, Normal ENT Exam, Normocephalic, PERRLA - NECK Neck: Normal Inspection - RESPIRATORY Respiratory: Breath Sounds Normal, No Respiratory Distress - MUSCULOSKELETAL/EXTREMETIES Musculoskeletal/Extremeties: Tender, Edema, Eccymosis - NEURO Level of Consciousness: Awake Motor/Sensory: No Motor Deficit Deep Tendon Reflexes: 2+ - DERM Integumentary: Warm, Dry, No Rash Course - Vital Signs Vital signs: Temp Pulse Resp BP Pulse Ox 97.8 F 59 L 16 133/83 H 98 09/10/18 18:02 09/10/18 18:02 09/10/18 18:02 09/10/18 18:02 09/10/18 18:02 - Diagnostic Test Radiology reviewed: Image reviewed, Reports reviewed Discharge - Discharge Clinical Impression: Right foot pain Fall Qualifiers: Encounter type: initial encounter Qualified Code(s): W19.XXXA - Unspecified fall, initial encounter Right ankle pain Qualifiers: Chronicity: acute Qualified Code(s): M25.571 - Pain in right ankle and joints of right foot Left knee pain Qualifiers: Chronicity: acute Qualified Code(s): M25.562 - Pain in left knee Condition: Stable Disposition: HOME, SELF-CARE Additional Instructions: CONTUSION: Your injury has resulted in a contusion -- a crushing of the deep tissues. No injury to important structures was detected during the physician's exam. Contusions vary in the amount of pain they cause, and in the length of time required for healing. Typically, the area will become bruised, and will remain painful to touch for two or three weeks. However, most patients are back to working and playing within a few days. After the initial period of rest and cold-packs, your symptoms (together with the doctor's recommendations) will determine how rapidly you can get back to full activity. Usually this means "do what feels okay, but don't do things that hurt." If re-examination was recommended, it's important to follow up as instructed. Call the doctor or return any time if pain increases, if swelling becomes severe, if you develop numbness or weakness in an injured extremity, or if any other alarming symptoms occur. USE OF TYLENOL (ACETAMINOPHEN): Acetaminophen may be taken for pain relief or fever control. It's much safer than aspirin, offering a wider range of "safe" dosages. It is safe during . Some brand names are Tylenol, Panadol, Datril, Anacin 3, Tempra, and Liquiprin. Acetaminophen can be repeated every four hours. The following are maximum recommended dosages: WEIGHT Dose Drops Elixir Chewable( 80mg) (LBS.) drprs=droppers tsp=teaspoon 6 40 mg 0.4 ml (1/2) 6-11 80 mg 0.8 ml (full) tsp 1 tab 12-16 120 mg 1 1/2 drprs 3/4 tsp 1 1/2 tabs 17-23 160 mg 2 drprs 1 tsp 2 tabs 24-30 240 mg 3 drprs 1 1/2 tsp 3 tabs 30-35 320 mg 2 tsp 4 tabs 36-41 360 mg 2 1/4 tsp 4 1/2 tabs 42-47 400 mg 2 1/2 tsp 5 tabs 48-53 480 mg 3 tsp 6 tabs 54-59 520 mg 3 1/4 tsp 6 1/2 tabs 60-64 560 mg 3 1/2 tsp 7 tabs 65-70 600 mg 3 3/4 tsp 7 1/2 tabs 71-76 640 mg 4 tsp 8 tabs 77-82 720 mg 4 1/2 tsp 9 tabs 83-88 800 mg 5 tsp 10 tabs >89 pounds or adults 650 mg to 900 mg Acetaminophen can be repeated every four hours. Maximum dose not to exceed 4000 mg a day. These maximum recommended dosages are slightly higher than the dosages written on the product container, but these dosages are very safe and below the toxic dosage for acetaminophen. ICE & ELEVATION: Apply ice packs frequently against the painful area. Many different schedules are recommended, such as "20 minutes on, 20 minutes off" or "one hour ice, two hours rest." If you need to work, you may need to go longer between ice treatments. You should plan to have the area ice packed AT LEAST one- fourth of the time. The ice should be applied over the wrap, tape, or splint, or over a layer of cloth -- not directly against the skin. Some ice bags have a built-in cloth and can be put directly on the skin. Your injured part should be elevated as much as possible over the next 48 hours. Try to keep the injury above the level of the heart. Avoid use of the injured area. Elevation and rest will decrease the swelling. USE OF [id number] IBUPROFEN: Ibuprofen (Advil, Nuprin, Medipren, Motrin IB) is a medication for fever and pain control. In addition, it has anti- inflammatory effects which may be beneficial, especially in the treatment of injuries. It's best to take ibuprofen with food. Persons with ulcer disease or allergy to aspirin should notify their physician of this before taking ibuprofen. Ibuprofen can be given every four to six hours, for a total of four doses daily. Age Pain or fever dose Antiinflammatory dose 6-8 yr 200 mg (1 tab) 200 mg (1 tab) 9-11 yr 200 mg (1 tab) 200-400 mg (1-2 tab) 11-14 yr 200-400 mg (1-2 tab) 400 mg (2 tab) 15-adult 400 mg (2 tab) 600 mg (3 tab) FOLLOW-UP CARE: If you have been referred to a physician for follow-up care, call the physician s office for an appointment as you were instructed or within the next two days. If you experience worsening or a significant change in your symptoms, notify the physician immediately or return to the Emergency Department at any time for re-evaluation. Forms: Elevated Blood Pressure, Return to Work Referrals: CATARINA OCHOA, [employer] ADMINISTRATOR-C [Primary Care Provider] - Follow up as needed
--- NOTE | 2018-09-10 22:44 | RADIOLOGY REPORT (SQ) ---
EXAM DESCRIPTION: XR KNEE 4 OR MORE VIEWS COMPLETED DATE/TME: 09/10/2018 22:09 CLINICAL HISTORY: 43 years, Female, fell today pain in ankle and knee COMPARISON: EXAM DESCRIPTION: CLINICAL HISTORY: fell today pain in ankle and knee COMPARISON: None FINDINGS: Four view(s) submitted. No fracture or dislocation is identified. Bone marrow attenuation is unremarkable. No radiopaque foreign body is identified. IMPRESSION: No acute fracture or dislocation. NUMBER OF VIEWS: TECHNIQUE: LIMITATIONS: None. FINDINGS: IMPRESSION: 2010 [facility] [employer]- All Rights Reserved
--- NOTE | 2018-09-10 22:47 | RADIOLOGY REPORT (SQ) ---
EXAM DESCRIPTION: XR FOOT 3 OR MORE VIEWS COMPLETED DATE/TME: 09/10/2018 22:17 CLINICAL HISTORY: 43 years, Female, Pain swelling injury after fall COMPARISON: EXAM DESCRIPTION: CLINICAL HISTORY: Pain swelling injury after fall COMPARISON: None FINDINGS: 3 view(s) submitted. No fracture or dislocation is identified. Bone marrow attenuation is unremarkable. No radiopaque foreign body is identified. IMPRESSION: No acute fracture or dislocation. NUMBER OF VIEWS: TECHNIQUE: LIMITATIONS: None. FINDINGS: IMPRESSION: 2010 [facility] [employer]- All Rights Reserved
--- NOTE | 2018-09-10 22:48 | RADIOLOGY REPORT (SQ) ---
EXAM DESCRIPTION: XR ANKLE 3 OR MORE VIEWS COMPLETED DATE/TME: 09/10/2018 22:09 CLINICAL HISTORY: 43 years, Female, fell today pain in ankle and knee COMPARISON: EXAM DESCRIPTION: CLINICAL HISTORY: fell today pain in ankle and knee COMPARISON: None FINDINGS: 3 view(s) submitted. No fracture or dislocation is identified. Bone marrow attenuation is unremarkable. No radiopaque foreign body is identified. IMPRESSION: No acute fracture or dislocation. NUMBER OF VIEWS: TECHNIQUE: LIMITATIONS: None. FINDINGS: IMPRESSION: 2010 [facility] [employer]- All Rights Reserved
[2018-09-10 23:18] VITALS: BP 133/77
== END 2018-09-10 23:25 | disposition home or self-care (01) ==
LOC: ER 17:45
DX: M79.671 Pain in right foot (principal); M25.562 Pain in left knee; M25.571 Pain in right ankle and joints of right foot; W18.30XA Fall on same level, unspecified, initial encounter; I10 Essential (primary) hypertension
CPT/HCPCS: 99283

== ENCOUNTER 2018-11-15 01:55 | Emergency (ER) | payer BC ==
[2018-11-15 02:05] VITALS: BP 143/83
[2018-11-15 02:56] LABS: A TYPE INFLUENZA AG NEGATIVE (NEGATIVE); B INFLUENZA AG NEGATIVE (NEGATIVE)
--- NOTE | 2018-11-15 03:03 | RADIOLOGY REPORT (SQ) ---
EXAM DESCRIPTION: XR CHEST 2 VIEWS COMPLETED DATE/TME: 11/15/2018 02:13 CLINICAL HISTORY: 43 years, Female, cough, fever COMPARISON: None. NUMBER OF VIEWS: 2 TECHNIQUE: Frontal and lateral views of the chest LIMITATIONS: None. FINDINGS: Heart size is normal. Lungs are clear. No pneumothorax IMPRESSION: Negative chest copyright 2010 [employer]- All Rights Reserved
--- NOTE | 2018-11-15 03:23 | ER Document Report ---
ED General - General Chief Complaint: Flu Symptoms Stated Complaint: FEVER Time Seen by Provider: 11/15/18 02:13 Notes: Patient is a 43-year-old female with a past medical history of hypertension who presents with 1 week of cough, nasal congestion, sinus pressure and bilateral ear pressure. States that she is also had a fever at home although cannot report the number. She states that her symptoms have been relatively unchanged since onset. She has not trying to improve her symptoms. Nothing worsens her symptoms. Multiple sick contacts. She has not seen her primary care doctor regarding today's concerns. Denies a recent history of similar symptoms. She denies any vomiting, diarrhea or shortness of breath. No weakness or numbness. No confusion. No neck pain. TRAVEL OUTSIDE OF THE [place] IN LAST 30 DAYS: No - Related Data Allergies/Adverse Reactions: No Known Allergies Allergy (Verified 11/15/18 02:42) Past Medical History - General Information source: Patient - Social History Smoking Status: Never Smoker Frequency of alcohol use: None Drug Abuse: None Lives with: Spouse/Significant other Family History: Reviewed & Not Pertinent Patient has suicidal ideation: No Patient has homicidal ideation: No - Past Medical History Cardiac Medical History: Reports: Hx Hypertension Endocrine Medical History: Reports: Hx Diabetes Mellitus Type 2 - "prediabetic" Renal/ Medical History: Denies: Hx Peritoneal Dialysis Past Surgical History: Reports: Hx Appendectomy, Hx Section - Immunizations Hx Diphtheria, Pertussis, Tetanus Vaccination: Yes - 2011 Review of Systems - Review of Systems Notes: Constitutional: Positive for fever. HENT: Positive for sore throat, positive for sinus pressure and bilateral ear pain Eyes: Negative for visual changes. Cardiovascular: Negative for chest pain. Respiratory: Positive for cough Gastrointestinal: Negative for abdominal pain, vomiting or diarrhea. Genitourinary: Negative for dysuria. Musculoskeletal: Negative for back pain. Skin: Negative for rash. Neurological: Negative for headaches, weakness or numbness. 10 point ROS negative except as marked above and in HPI. Physical Exam - Vital signs Vitals: Temp Pulse Resp BP Pulse Ox 98.4 F 77 18 143/83 H 99 11/15/18 02:03 11/15/18 02:03 11/15/18 02:03 11/15/18 02:03 11/15/18 02:03 Interpretation: Normal Notes: PHYSICAL EXAMINATION: GENERAL: Well-appearing, well-nourished and in no acute distress. HEAD: Atraumatic, normocephalic. EYES: Pupils equal round and reactive to light, extraocular movements intact, sclera anicteric, conjunctiva are normal. ENT: nares patent, oropharynx clear without exudates. TMs with mild serous effusion bilaterally but no bulging or erythema. No purulent effusion. Moist mucous membranes. NECK: Normal range of motion, bilateral anterior cervical lymphadenopathy LUNGS: Breath sounds clear to auscultation bilaterally and equal. No wheezes rales or rhonchi. HEART: Regular rate and rhythm, 2/6 systolic ejection murmur ABDOMEN: Soft, nontender, normoactive bowel sounds. No guarding, no rebound. No masses appreciated. EXTREMITIES: Normal range of motion, no pitting or edema. No cyanosis. NEUROLOGICAL: No focal neurological deficits. Moves all extremities spontaneously and on command. PSYCH: Normal mood, normal affect. SKIN: Warm, Dry, normal turgor, no rashes or lesions noted. Course - Re-evaluation Re-evalutation: 11/15/18 03:21 Patient presents with cough, sore throat and fever at home consistent with a flulike illness although our flu test here is negative. Clinical history and exam is not consistent with an acute bacterial meningitis, encephalitis, pneumonia, there is no evidence of a cellulitis on examination. Patient likewise denies any urinary symptoms. Chest x-ray is clear without any evidence of an acute pneumonia. Patient does not have any focal abdominal tenderness to suggest an acute biliary pathology, acute appendicitis, acute mesenteric ischemia, bowel obstruction, bowel, or any other life-threatening acute intra- abdominal pathology as the etiology of the fever and additional symptoms today. Patient is tolerated oral intake without difficulty. Vitals at time of reassessment are within normal limits. At this time will discharge with return precautions and follow-up recommendations. Verbal discharge instructions given a the bedside and opportunity for questions given. Medication warnings reviewed. Patient is in agreement with this plan and has verbalized understanding of return precautions and the need for primary care follow-up in the next 24-72 hours. - Vital Signs Vital signs: Temp Pulse Resp BP Pulse Ox 98.4 F 77 18 143/83 H 99 11/15/18 02:03 11/15/18 02:03 11/15/18 02:03 11/15/18 02:03 11/15/18 02:03 - Diagnostic Test Radiology reviewed: Image reviewed, Reports reviewed Radiology results interpreted by me: 11/15/18 03:22 Chest x-ray: No acute infiltrate or pneumothorax Discharge - Discharge Clinical Impression: Viral respiratory infection, Cough, Sinus pressure Condition: Good Disposition: HOME, SELF-CARE Additional Instructions: Your symptoms are most likely due to a viral infection it should resolve over the next 7-14 days. You should take [id number] guanfacine per bottle instructions to help thin the mucus. For nasal congestion: I would recommend that you get [id number] oxymetazoline also known is afrin. Use only per bottle instructions and be sure to never use this for more than 3 days if you can develop severe rebound congestion. You may also use tylenol or ibuprofen as needed for aches and thorat discomfort. Please be sure to drink plenty of fluids and get rest. Return to the emergency department he began having difficulty breathing, chest pain, persistent vomiting, or any other symptoms that are concerning to you. Your chest x-ray and flu test are normal today. Referrals: CATARINA OCHOA, [employer] WORKER-C [Primary Care Provider] - Follow up as needed
== END 2018-11-15 03:56 | disposition home or self-care (01) ==
LOC: ER 01:55
DX: J98.8 Other specified respiratory disorders (principal); B97.89 Other viral agents as the cause of diseases classified elsewhere; R05 Cough; R09.81 Nasal congestion; J34.89 Other specified disorders of nose and nasal sinuses; J02.9 Acute pharyngitis, unspecified; H92.03 Otalgia, bilateral; I10 Essential (primary) hypertension; R50.9 Fever, unspecified
CPT/HCPCS: 71046; 87804; 99283

== ENCOUNTER 2019-04-01 00:42 | Emergency (ER) | payer BC ==
[2019-04-01 08:34] LABS: APPEARANCE,URINE SLIGHTLY-CLOUDY; BILIRUBIN,URINE NEGATIVE (NEGATIVE); COLOR,URINE YELLOW; GLUCOSE, URINE NEGATIVE (NEGATIVE); KETONES,URINE NEGATIVE (NEGATIVE); LEUKOCYTE ESTERASE,URINE NEGATIVE (NEGATIVE); NITRITE,URINE NEGATIVE (NEGATIVE); PROTEIN,URINE NEGATIVE (NEGATIVE); UROBILINOGEN,URINE NEGATIVE mg/dL (<2.0)
[2019-04-01 08:48] LABS: ABSOLUTE EOSINOPHILS # (AUTO) 0.1 10^3/uL (0.0-0.6); ABSOLUTE LYMPHOCYTES (AUTO) 1.7 10^3/uL (0.5-4.7); ABSOLUTE MONOCYTES (AUTO) 0.5 10^3/uL (0.1-1.4); ABSOLUTE NEUT (AUTO) 1.8 10^3/uL (1.7-8.2); BASOPHILS % (AUTO) 0.8 % (0-2); EOSINOPHILS % (AUTO) 1.7 % (0-6); HEMATOCRIT 38.9 % (36.0-47.0); LYMPHOCYTES % (AUTO) 41.2 % (13-45); MEAN CORPUSCULAR HEMOGLOBIN 27.8 pg (27.0-33.4); MEAN CORPUSCULAR HGB CONC 33.5 g/dL (32.0-36.0); MEAN CORPUSCULAR VOLUME 83 fl (80-97); PLATELET COUNT 279 10^3/uL (150-450); RED BLOOD COUNT 4.69 10^6/uL (3.72-5.28); RED CELL DISTRIBUTION WIDTH 14.3 % (11.5-14.0); SEGMENTED NEUTROPHILS % (AUTO) 44.3 % (42-78); TOTAL CELLS COUNTED % (AUTO) 100 %; WHITE BLOOD COUNT 4.2 10^3/uL (4.0-10.5)
[2019-04-01 09:08] LABS: ALANINE AMINOTRANSFERASE 32 U/L (9-52); ALBUMIN 3.7 g/dL (3.5-5.0); ALKALINE PHOSPHATASE 78 U/L (38-126); ANION GAP 5 (5-19); ASPARTATE AMINO TRANSFERASE 19 U/L (14-36); BILIRUBIN,DIRECT 0.2 mg/dL (0.0-0.4); BILIRUBIN,TOTAL 0.5 mg/dL (0.2-1.3); BLOOD UREA NITROGEN 10 mg/dL (7-20); CALCIUM 8.9 mg/dL (8.4-10.2); CARBON DIOXIDE 29 mmol/L (22-30); CHLORIDE 106 mmol/L (98-107); CREATINE KINASE 110 U/L (30-135); GLUCOSE 87 mg/dL (75-110); POTASSIUM 3.9 mmol/L (3.6-5.0); SODIUM 140.3 mmol/L (137-145); TOTAL PROTEIN 7.2 g/dL (6.3-8.2)
[2019-04-01 09:49] VITALS: BP 119/80
--- NOTE | 2019-04-01 14:20 | ER Document Report ---
Entered by HARLEEN LEDBETTER SCRIBE 04/01/19 0720 Acting as scribe for:LÓPEZ BERNSTEIN MD ED Fall - General Chief Complaint: Fall Stated Complaint: FALL Time Seen by Provider: 04/01/19 07:05 Primary Care Provider: CATARINA OCHOA FNP-C [Primary Care Provider] - Follow up as needed Notes: Patient is a 44-year-old female presenting to the emergency department complaining of a fall with associated dizziness and sluggishness. Patient states that these symptoms have been occurring "the last few days" and that she fell last night at 19:00. Patient states that she was outside and fell on her left side on cement due to her dizziness, and that moments after her children helped her up she fell down once more, on grass. Patient states that she has felt lightheaded and dizzy in the past and noticed that when the symptoms occurred previously her blood sugar had been fluctuating. TRAVEL OUTSIDE OF THE [place] IN LAST 30 DAYS: No - Related data Allergies/Adverse Reactions: No Known Allergies Allergy (Verified 11/15/18 02:42) Past Medical History - General Information source: Patient, [facility] Records - Social History Smoking Status: Never Smoker Cigarette use (# per day): No Chew tobacco use (# tins/day): No Frequency of alcohol use: None Drug Abuse: None Family History: Reviewed & Not Pertinent Patient has suicidal ideation: No Patient has homicidal ideation: No - Past Medical History Cardiac Medical History: Reports: Hx Hypertension Endocrine Medical History: Reports: Hx Diabetes Mellitus Type 2 - "prediabetic" Past Surgical History: Reports: Hx Appendectomy, Hx Section - Immunizations Hx Diphtheria, Pertussis, Tetanus Vaccination: Yes - 2011 Review of Systems - Review of Systems Constitutional: Malaise EENT: See HPI Cardiovascular: See HPI, Dizziness Respiratory: See HPI Gastrointestinal: See HPI Genitourinary: No symptoms reported Female Genitourinary: No symptoms reported Musculoskeletal: No symptoms reported Skin: No symptoms reported Hematologic/Lymphatic: No symptoms reported Neurological/Psychological: No symptoms reported -: Yes All other systems reviewed and negative Physical Exam - Vital signs Vitals: Temp Pulse Resp BP Pulse Ox 98 F 64 18 140/88 H 98 04/01/19 01:05 04/01/19 01:05 04/01/19 01:05 04/01/19 01:05 04/01/19 01:05 - Notes Notes: Physical Exam: General: Alert, appears well. HEENT: Normocephalic. Atraumatic. PERRL. Extraocular movements intact. Oropharynx clear. Neck: Supple. Non-tender. Respiratory: No respiratory distress. Clear and equal breath sounds bilaterally. Cardiovascular: Murmur. Regular rhythm. Abdominal: Normal Inspection. Non-tender. No distension. Normal Bowel Sounds. Back: Non-tender. No deformity or step off. Extremities: Moves all four extremities. Upper extremities: Normal inspection. Normal ROM. Lower extremities: Normal inspection. No edema. Normal ROM. Neurological: Normal cognition. AAOx4. Normal speech. Psychological: Normal affect. Normal Mood. Skin: Warm. Dry. Normal color. Course - Re-evaluation Re-evalutation: 04/01/19 09:25 Patient laboratory evaluation unremarkable, including a low CK which would suggest there was no significant muscle injury when she fell. 04/01/19 09:28 On reexam the patient feels quite well. I had her sit up and look up and down and left and right rapidly without provoking any nystagmus or dizziness. At this point she mentions that she has trouble with her ears and sometimes does not hear people when they talk to her. In exam of her external ear canal shows no wax, and normal-appearing tympanic membranes. - Vital Signs Vital signs: Temp Pulse Resp BP Pulse Ox 97.6 F 56 L 18 119/80 100 04/01/19 09:43 04/01/19 09:43 04/01/19 09:43 04/01/19 09:43 04/01/19 09:43 - Laboratory Result Diagrams: 04/01/19 08:32 04/01/19 08:32 Laboratory results interpreted by me: 04/01/19 04/01/19 04/01/19 08:18 08:32 08:32 RDW 14.3 H Creatinine 0.49 L Urine Ascorbic Acid 20 H Discharge - Discharge Clinical Impression: Syncope and collapse Condition: Stable Disposition: HOME, SELF-CARE Additional Instructions: Syncopal Episode Syncope (fainting or near-fainting) can occur from many different health problems. Or it can be a simple fainting spell requiring no treatment. It is safe for you to go home, but further evaluation will likely be necessary. Your work-up may include tests for internal bleeding, heart disease, medication problems, or near-strokes. Tests are not always required, however, depending on the nature of your problem. The warning signs of an impending faint include: dizziness, ligh theadedness, nausea, hot flashes, tingling, and weakness. If this happens, lay down and put your feet up, then wait until all of these symptoms have passed before standing up again. If these episodes become recurrent, or if you develop chest pain, heart palpitations, mental confusion, blurred vision, or headache, then you should call the physician, or go to the emergency room. Contusion Your injury has resulted in a contusion -- a crushing of the deep tissues. No injury to important structures was detected during the physician's exam. Contusions vary in the amount of pain they cause, and in the length of time required for healing. Typically, the area will become bruised, and will remain painful to touch for two or three weeks. However, most patients are back to working and playing within a few days. After the initial period of rest and cold-packs, your symptoms (together with the doctor's recommendations) will determine how rapidly you can get back to full activity. Usually this means "do what feels okay, but don't do things that hurt." If re-examination was recommended, it's important to follow up as instructed. Call the doctor or return any time if pain increases, if swelling becomes severe, if you develop numbness or weakness in an injured extremity, or if any other alarming symptoms occur. Drink plenty of fluids get plenty of rest today. Follow-up with your doctor if you continue to have symptoms of being dizzy and lightheaded or sluggish. RETURN TO THE EMERGENCY ROOM IF ANY NEW OR WORSENING SYMPTOMS. Forms: Return to Work Referrals: DON,CATARINA D, KITCHEN STEWARD/STEWARDESS-C [Primary Care Provider] - Follow up as needed Scribe Attestation: 04/01/19 09:27 I personally performed the services described in the documentation, reviewed and edited the documentation which was dictated to the scribe in my presence, and it accurately records my words and actions. I personally performed the services described in the documentation, reviewed and edited the documentation which was dictated to the scribe in my presence, and it accurately records my words and actions.
== END 2019-04-01 09:50 | disposition home or self-care (01) ==
LOC: ER 00:42
DX: R55 Syncope and collapse (principal); R42 Dizziness and giddiness; R53.81 Other malaise; I10 Essential (primary) hypertension
CPT/HCPCS: 36415; 80053; 81001; 82550; 85025; 99284

== ENCOUNTER 2019-07-07 06:53 | Emergency (ER) | payer OTHER, BC ==
[2019-07-07 07:02] VITALS: BP 122/86
--- NOTE | 2019-07-07 07:17 | ER Document Report ---
Entered by BERKLEY WHITING SCRIBE 07/07/19 0715 Acting as scribe for:NAZIA THORPE MD ED Fall - General Chief Complaint: Fall Stated Complaint: FALL Time Seen by Provider: 07/07/19 07:10 Primary Care Provider: CATARINA OCHOA FNP-C [Primary Care Provider] - Follow up as needed Mode of Arrival: Ambulatory Information source: Patient Notes: Patient is a 44-year-old female who presents to the emergency department today with complaints of bilateral knee pain secondary to a fall that occurred at work just prior to arrival. Patient states "there is a door that is stuck, I pushed it hard and then tripped over a luis". Patient states she landed on her knees after tripping. Patient has been ambulatory since the fall. Patient denies any loss of consciousness, hitting her head, or usage of blood thinning medications. TRAVEL OUTSIDE OF THE [place] IN LAST 30 DAYS: No - Related data Allergies/Adverse Reactions: No Known Allergies Allergy (Verified 11/15/18 02:42) Past Medical History - General Information source: Patient - Social History Smoking Status: Never Smoker Cigarette use (# per day): No Frequency of alcohol use: None Drug Abuse: None Lives with: Family Family History: Reviewed & Not Pertinent - Past Medical History Cardiac Medical History: Reports: Hx Hypertension Endocrine Medical History: Reports: Hx Diabetes Mellitus Type 2 - "prediabetic" Past Surgical History: Reports: Hx Appendectomy, Hx Section - Immunizations Hx Diphtheria, Pertussis, Tetanus Vaccination: Yes - 2011 Review of Systems - Review of Systems Constitutional: No symptoms reported EENT: No symptoms reported Cardiovascular: No symptoms reported Respiratory: No symptoms reported Gastrointestinal: No symptoms reported Genitourinary: No symptoms reported Female Genitourinary: No symptoms reported Musculoskeletal: See HPI, Other - bilateral leg pain Skin: No symptoms reported Hematologic/Lymphatic: No symptoms reported Neurological/Psychological: denies: Lost consciousness -: Yes All other systems reviewed and negative Physical Exam - Vital signs Vitals: Temp Pulse Resp BP Pulse Ox 97.3 F 72 16 122/86 H 97 07/07/19 06:58 07/07/19 06:58 07/07/19 06:58 07/07/19 06:58 07/07/19 06:58 - Notes Notes: Physical Exam: General: Alert, appears well. HEENT: Normocephalic. Atraumatic. PERRLA. Extraocular movements intact. Oropharynx clear. Neck: Supple. Respiratory: No respiratory distress. Abdominal: Normal Inspection. No distension. Extremities: Moves all four extremities. Normal gait. No ligamentous laxity in either knee. There is some slight bruising over the left anterior wilson. No patellar tenderness. Neurological: Normal cognition. AAOx4. Normal speech. Psychological: Normal affect. Normal Mood. Skin: Warm. Dry. Normal color. Course - Re-evaluation Re-evalutation: 07/07/19 07:15 Benign exam other than mild bruising mid anterior wilson of left lower extremity. Normal gait with stable bilateral knee joints. No tenderness to palpation of bilateral patella. Did not feel imaging was necessary at this time. Discussed using ice as well as ibuprofen. Return precautions provided. - Vital Signs Vital signs: Temp Pulse Resp BP Pulse Ox 97.3 F 72 16 122/86 H 97 07/07/19 06:58 07/07/19 06:58 07/07/19 06:58 07/07/19 06:58 07/07/19 06:58 Discharge - Discharge Clinical Impression: Bilateral anterior knee pain Condition: Good Disposition: HOME, SELF-CARE Instructions: Contusion ([facility]) Referrals: CATARINA OCHOA, COMPLIANCE PROJECT MANAGER-C [Primary Care Provider] - Follow up as needed I personally performed the services described in the documentation, reviewed and edited the documentation which was dictated to the scribe in my presence, and it accurately records my words and actions.
== END 2019-07-07 07:54 | disposition home or self-care (01) ==
LOC: ER 06:53
DX: M25.561 Pain in right knee (principal); M25.562 Pain in left knee; W19.XXXA Unspecified fall, initial encounter; I10 Essential (primary) hypertension; E11.9 Type 2 diabetes mellitus without complications
CPT/HCPCS: 99283

== ENCOUNTER 2019-09-28 23:27 | Emergency (ER) | payer BC, OTHER ==
--- NOTE | 2019-09-29 00:28 | ER Document Report ---
ED General - General Chief Complaint: Chest Pain Stated Complaint: CHEST PAIN,LEFT ARM PAIN,SENSITIVE TO LIGHT Time Seen by Provider: 09/29/19 00:28 Primary Care Provider: CATARINA OCHOA FNP-C [NO LOCAL MD] - Follow up as needed TRAVEL OUTSIDE OF THE [place] IN LAST 30 DAYS: No - HPI Patient complains to provider of: headache Notes: 44 y/o presenting to ED for evaluation of headache, chest pain, left arm pain all pains ongoing for >1 week she states she has daily headaches and that when they get bad like this her chest and arm hurt she notes significant sensitivity to light and blurry changes to vision she states she has seen eye specialists previously and has been told her eyes are normal no fever, neck stiffness no vomiting or nausea no meds tried for pain her headache is a whole head squeeze that she says is severe and makes her feel like her head is going to explode - Related Data Allergies/Adverse Reactions: No Known Allergies Allergy (Verified 11/15/18 02:42) Home Medications: amilodipine 10 mg qday, htcz 25 mg qday Past Medical History - Social History Smoking Status: Never Smoker Frequency of alcohol use: None Drug Abuse: None Family History: Reviewed & Not Pertinent Patient has suicidal ideation: No Patient has homicidal ideation: No - Past Medical History Cardiac Medical History: Reports: Hx Hypertension Endocrine Medical History: Reports: Hx Diabetes Mellitus Type 2 - "prediabetic" Renal/ Medical History: Denies: Hx Peritoneal Dialysis Past Surgical History: Reports: Hx Appendectomy, Hx Section - Immunizations Hx Diphtheria, Pertussis, Tetanus Vaccination: Yes - 2011 Review of Systems - Review of Systems Constitutional: No symptoms reported EENT: No symptoms reported Cardiovascular: Chest pain Respiratory: No symptoms reported Gastrointestinal: No symptoms reported Genitourinary: No symptoms reported Female Genitourinary: No symptoms reported Musculoskeletal: Other - arm pain Skin: No symptoms reported Hematologic/Lymphatic: No symptoms reported Neurological/Psychological: Headaches Physical Exam - Vital signs Vitals: Temp Pulse Resp BP Pulse Ox 97.7 F 59 L 20 127/76 H 100 09/28/19 23:32 09/28/19 23:32 09/28/19 23:32 09/28/19 23:32 09/28/19 23:32 Interpretation: Normal - General General appearance: Appears well, Alert - HEENT Head: Normocephalic, Atraumatic Eyes: Normal Conjunctiva: Normal Extraocular movements intact: Yes Pupils: PERRL Mucous membranes: Moist Pharynx: Normal Neck: Normal. No: Lymphadenopathy, Meningismus - Respiratory Respiratory status: No respiratory distress Chest status: Nontender Breath sounds: Normal Chest palpation: Normal - Cardiovascular Rhythm: Regular Heart sounds: Normal auscultation Murmur: No - Abdominal Inspection: Normal Distension: No distension Bowel sounds: Normal Tenderness: Nontender Organomegaly: No organomegaly - Back Back: Normal, Nontender - Extremities General upper extremity: Normal inspection, Nontender, Normal color, Normal ROM, Normal temperature General lower extremity: Normal inspection, Nontender, Normal color, Normal ROM, Normal temperature, Normal weight bearing. No: Mira's sign Notes: pulses equal in all extremities - Neurological Neuro grossly intact: Yes Cognition: Normal Orientation: AAOx4 Nenzel Coma Scale Eye Opening: Spontaneous Ramu Coma Scale Verbal: Oriented Ramu Coma Scale Motor: Obeys Commands Nenzel Coma Scale Total: 15 Speech: Normal Motor strength normal: LUE, RUE, LLE, RLE Sensory: Normal Notes: neuro intact - speech, gait, coordination, strength/sensation - Psychological Associated symptoms: Normal affect, Normal mood - Skin Skin Temperature: Warm Skin Moisture: Dry Skin Color: Normal Course - Re-evaluation Re-evalutation: 09/29/19 01:05 neuro intact w/ constellation of symptoms will image head given no h/o neuro imaging on chart and reported "severe' headache not meningitic on exam ekg nonischemic will check trop but chest pain very atypical for cardiac pain 09/29/19 03:33 feels better after reglan/toradol/benadryl dc w/ pcp follow up remains neuro intact w/o meningismus no longer has eye/arm/chest/head pain vision now normal per her report w/o blurriness - Vital Signs Vital signs: Temp Pulse Resp BP Pulse Ox 97.7 F 59 L 19 113/68 99 09/28/19 23:32 09/28/19 23:32 09/29/19 03:01 09/29/19 03:01 09/29/19 03:01 - Laboratory Result Diagrams: 09/29/19 00:27 09/29/19 00:27 Laboratory results interpreted by me: 09/29/19 09/29/1909/29/19 00:27 00:27 00:27 RDW 14.5 H BUN 22 H Urine Blood LARGE H - Diagnostic Test Radiology reviewed: Image reviewed, Reports reviewed - EKG Interpretation by Me Additional EKG results interpreted by me: 09/29/19 01:06 NSR, rate of 56, no ST segment changes Discharge - Discharge Clinical Impression: Atypical chest pain, Arm pain, left Headache Qualifiers: Headache type: unspecified Headache chronicity pattern: acute headache Intractability: not intractable Qualified Code(s): R51 - Headache Condition: Stable Disposition: HOME, SELF-CARE Instructions: Migraine Headache ([facility]), Chest Pain of Unclear Cause ([facility]) Additional Instructions: follow up with primary doctor as outpatient return to the ED with worsening Referrals: CATARINA OCHOA FNP-C [NO LOCAL MD] - Follow up as needed
[2019-09-29 00:46] LABS: ABSOLUTE BASOPHILS # (AUTO) 0.1 10^3/uL (0.0-0.2); ABSOLUTE EOSINOPHILS # (AUTO) 0.1 10^3/uL (0.0-0.6); ABSOLUTE LYMPHOCYTES (AUTO) 2.1 10^3/uL (0.5-4.7); ABSOLUTE MONOCYTES (AUTO) 0.6 10^3/uL (0.1-1.4); ABSOLUTE NEUT (AUTO) 2.8 10^3/uL (1.7-8.2); BASOPHILS % (AUTO) 0.9 % (0-2); EOSINOPHILS % (AUTO) 1.5 % (0-6); HEMATOCRIT 39.5 % (36.0-47.0); HEMOGLOBIN 13.3 g/dL (12.0-15.5); LYMPHOCYTES % (AUTO) 37.6 % (13-45); MEAN CORPUSCULAR HEMOGLOBIN 28.1 pg (27.0-33.4); MEAN CORPUSCULAR HGB CONC 33.6 g/dL (32.0-36.0); MEAN CORPUSCULAR VOLUME 84 fl (80-97); MONOCYTES % (AUTO) 9.8 % (3-13); PLATELET COUNT 318 10^3/uL (150-450); RED BLOOD COUNT 4.73 10^6/uL (3.72-5.28); RED CELL DISTRIBUTION WIDTH 14.5 % (11.5-14.0); SEGMENTED NEUTROPHILS % (AUTO) 50.2 % (42-78); TOTAL CELLS COUNTED % (AUTO) 100 %; WHITE BLOOD COUNT 5.6 10^3/uL (4.0-10.5)
[2019-09-29] MEDS ORDERED: KETOROLAC TROMETHAMINE INJ/PF 30 MG/1 ML SDV IV ONE (00:48)
[2019-09-29] MEDS ORDERED: DIPHENHYDRAMINE HCL 50 MG/ML VIAL IV ONE (00:48)
[2019-09-29] MEDS ORDERED: METOCLOPRAMIDE HCL INJ/PF 10 MG/2 ML SDV IV ONE (00:48)
[2019-09-29] MEDS ORDERED: NORMAL SALINE 1000 ML 1,000 ML IV ONE (00:49)
[2019-09-29 01:01] LABS: ALKALINE PHOSPHATASE 66 U/L (38-126); ANION GAP 9 (5-19); ASPARTATE AMINO TRANSFERASE 17 U/L (14-36); BILIRUBIN,DIRECT 0.1 mg/dL (0.0-0.4); BILIRUBIN,TOTAL 0.5 mg/dL (0.2-1.3); BLOOD UREA NITROGEN 22 mg/dL (7-20); CALCIUM 9.3 mg/dL (8.4-10.2); CARBON DIOXIDE 27 mmol/L (22-30); CHLORIDE 105 mmol/L (98-107); CREATINE KINASE 107 U/L (30-135); GLUCOSE 93 mg/dL (75-110); TOTAL PROTEIN 7.8 g/dL (6.3-8.2)
[2019-09-29 01:16] LABS: APPEARANCE,URINE CLEAR; BILIRUBIN,URINE NEGATIVE (NEGATIVE); COLOR,URINE YELLOW; GLUCOSE, URINE NEGATIVE (NEGATIVE); KETONES,URINE NEGATIVE (NEGATIVE); LEUKOCYTE ESTERASE,URINE NEGATIVE (NEGATIVE); NITRITE,URINE NEGATIVE (NEGATIVE); PROTEIN,URINE NEGATIVE (NEGATIVE); UROBILINOGEN,URINE NEGATIVE mg/dL (<2.0)
[2019-09-29 01:21] LABS: CREATINE KINASE MB 1.11 ng/mL (<4.55)
[2019-09-29 01:22] LABS: TROPONIN I < 0.012 ng/mL
--- NOTE | 2019-09-29 01:33 | RADIOLOGY REPORT (SQ) ---
CLINICAL HISTORY: CP COMPARISON: None. TECHNIQUE: XR CHEST 2 VIEWS 09/28/2019 12:00 AM ASSURANCE ANALYST FINDINGS: Cardiac silhouette is normal in size. Lungs are clear without consolidation, atelectasis, mass or edema. There is no pleural effusion. There is no pneumothorax. There are no acute osseous findings. IMPRESSION: Clear lungs.
--- NOTE | 2019-09-29 01:52 | RADIOLOGY REPORT (SQ) ---
EXAM DESCRIPTION: CT HEAD WITHOUT IV CONTRAST COMPLETED DATE/TME: 09/29/2019 00:48 CLINICAL HISTORY: 44 years, Female, headache COMPARISON: None. TECHNIQUE: 200 Images stored on PACS. All CT scanners at this facility use dose modulation, iterative reconstruction, and/or weight based dosing when appropriate to reduce radiation dose to as low as reasonably achievable (ALARA). [facility]: Dose Right [facility]: CareDose [facility]: Dose Right [facility]: Teradose 4D [facility]: [employer] LIMITATIONS: None. FINDINGS: Globes are intact. The paranasal sinuses and mastoid air cells are unremarkable. There is no displaced or depressed skull fracture. There is no intra or extra-axial hemorrhage. CT is limited for evaluation of acute infarct. No CT evidence for large or territorial acute infarct. No mass. No midline shift IMPRESSION: Negative exam TECHNICAL DOCUMENTATION: Quality ID # [id number]: Final reports with documentation of one or more dose reduction techniques (e.g., Automated exposure control, adjustment of the mA and/or kV according to patient size, use of iterative reconstruction technique) copyright 2011 [employer]- All Rights Reserved
[2019-09-29 03:07] VITALS: BP 113/68
--- NOTE | 2019-09-29 09:51 | EKG REPORT ---
SEVERITY:- NORMAL ECG - SINUS RHYTHM : Confirmed by: Joy Patino MD 29-Sep-2019 09:50:51
== END 2019-09-29 03:46 | disposition home or self-care (01) ==
LOC: ER 23:27
DX: R07.89 Other chest pain (principal); M79.602 Pain in left arm; R51 Headache; I10 Essential (primary) hypertension; E11.9 Type 2 diabetes mellitus without complications
CPT/HCPCS: 36415; 70450; 71046; 80053; 81001; 81025; 82550; 82553; 84484; 85025; 93005; 93010; J1200; J1885; J2765; J7030

== ENCOUNTER 2019-10-23 16:28 | Emergency (ER) | payer BC ==
--- NOTE | 2019-10-23 17:14 | ER Document Report ---
ED Medical Screen (RME) - General Chief Complaint: Nausea/Vomiting/Diarrhea Stated Complaint: ABDOMINAL PAIN Time Seen by Provider: 10/23/19 17:10 Primary Care Provider: SAMAN DAY PA-C [Primary Care Provider] - Follow up as needed Mode of Arrival: Ambulatory Information source: Patient Notes: 44-year-old female presents to ED for complaint of nausea vomiting and diarrhea since . She states she has had about 10 emesis and 5 diarrhea stools today. She states her abdomen is cramping all day level 4/5. She states there was some contaminated water in the fountains at work. 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 Abdomen soft bowel sounds present. I have greeted and performed a rapid initial assessment of this patient. A comprehensive ED assessment and evaluation of the patient, analysis of test results and completion of medical decision making process will be conducted by an additional ED providers. TRAVEL OUTSIDE OF THE [place] IN LAST 30 DAYS: No - Related Data Allergies/Adverse Reactions: No Known Allergies Allergy (Verified 10/23/19 17:10) Past Medical History - Past Medical History Cardiac Medical History: Reports: Hx Hypertension Endocrine Medical History: Reports: Hx Diabetes Mellitus Type 2 - "prediabetic" Renal/ Medical History: Denies: Hx Peritoneal Dialysis Past Surgical History: Reports: Hx Appendectomy, Hx Section - Immunizations Hx Diphtheria, Pertussis, Tetanus Vaccination: Yes - 2011 Physical Exam - Vital signs Vitals: Temp Pulse Resp BP Pulse Ox 98.0 F 64 16 131/79 H 97 10/23/19 16:31 10/23/19 16:31 10/23/19 16:31 10/23/19 16:31 10/23/19 16:31 Course - Vital Signs Vital signs: Temp Pulse Resp BP Pulse Ox 98.0 F 64 16 131/79 H 97 10/23/19 16:31 10/23/19 16:31 10/23/19 16:31 10/23/19 16:31 10/23/19 16:31 Doctor's Discharge - Discharge Referrals: SAMAN DAY PA-C [Primary Care Provider] - Follow up as needed
[2019-10-23] MEDS ORDERED: ONDANSETRON 4 MG TAB.RAPDIS PO ONE ×2 (17:15→18:07)
[2019-10-23 17:44] LABS: APPEARANCE,URINE CLEAR; BILIRUBIN,URINE NEGATIVE (NEGATIVE); COLOR,URINE YELLOW; GLUCOSE, URINE NEGATIVE (NEGATIVE); KETONES,URINE NEGATIVE (NEGATIVE); PROTEIN,URINE NEGATIVE (NEGATIVE); URINE SPECIFIC GRAVITY 1.028
[2019-10-23 18:03] LABS: ABSOLUTE EOSINOPHILS # (AUTO) 0.1 10^3/uL (0.0-0.6); ABSOLUTE LYMPHOCYTES (AUTO) 1.7 10^3/uL (0.5-4.7); ABSOLUTE MONOCYTES (AUTO) 0.5 10^3/uL (0.1-1.4); EOSINOPHILS % (AUTO) 1.7 % (0-6); TOTAL CELLS COUNTED % (AUTO) 100 %
--- NOTE | 2019-10-23 18:06 | ER Document Report ---
ED General - General Chief Complaint: Abdominal Pain Stated Complaint: ABDOMINAL PAIN Time Seen by Provider: 10/23/19 17:10 Primary Care Provider: SAMAN DAY PA-C [Primary Care Provider] - Follow up as needed Mode of Arrival: Ambulatory TRAVEL OUTSIDE OF THE [place] IN LAST 30 DAYS: No - HPI Notes: 44-year-old female presenting with a chief complaint of nausea vomiting and diarrhea intermittently for 2 days. 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 She says water is been tasting bad at all this week. She subsequently developed GI symptoms as noted above. She denies any bloody diarrhea hematemesis or coffee-ground emesis. She denies fever or chills. Intermittent burning and cramping epigastric discomfort. Pertinent prior history: Previous tubal ligation and appendectomy. No other surgery. - Related Data Allergies/Adverse Reactions: No Known Allergies Allergy (Verified 10/23/19 17:10) Past Medical History - General Information source: Patient - Social History Smoking Status: Never Smoker Family History: Reviewed & Not Pertinent Patient has suicidal ideation: No Patient has homicidal ideation: No - Past Medical History Cardiac Medical History: Reports: Hx Hypertension Endocrine Medical History: Reports: Hx Diabetes Mellitus Type 2 - "prediabetic" Renal/ Medical History: Denies: Hx Peritoneal Dialysis Past Surgical History: Reports: Hx Appendectomy, Hx Section - Immunizations Hx Diphtheria, Pertussis, Tetanus Vaccination: Yes - 2011 Review of Systems - Review of Systems Notes: Constitutional: Negative for fever. HENT: Negative for sore throat. Eyes: Negative for visual changes. Cardiovascular: Negative for chest pain. Respiratory: Negative for shortness of breath. Gastrointestinal: As per HPI. Genitourinary: Negative for dysuria. Musculoskeletal: Negative for back pain. Skin: Negative for rash. Neurological: Negative for headaches, weakness or numbness. 10 point ROS negative except as marked above and in HPI. Physical Exam - Vital signs Vitals: Temp Pulse Resp BP Pulse Ox 98.0 F 64 16 131/79 H 97 10/23/19 16:31 10/23/19 16:31 10/23/19 16:31 10/23/19 16:31 10/23/19 16:31 - Notes Notes: GENERAL: Well-developed well-nourished appearing in no acute distress. SKIN: Good turgor no rashes. HEAD: Normocephalic atraumatic. EYES: PERRLA. Conjunctivae and sclerae clear. EARS: CANALS AND TMS CLEAR. NOSE: CLEAR. MOUTH: Moist mucosa. Good dentition. No stridor or edema. No drooling. NECK: Supple. No masses or thyromegaly. No adenopathy. Carotids 2+ without bruits. No JVD. BACK: Symmetrical without tenderness. CHEST: Respirations unlabored. Breath sounds clear and symmetrical. HEART: Regular rhythm. No murmur gallop or rub. ABDOMEN: Soft nontender without masses, organomegaly or rebound. Bowel sounds normally active. No bruits. GENITALIA: Deferred. EXTREMITIES: No edema. No calf tenderness. Cap refill less than 1.5 seconds. Dorsalis pedis and posterior tibial pulses 3+ and symmetrical. NEUROLOGICAL: GCS 15. Alert and oriented x3. Normal gait. Fluent speech. Cranial nerves II through XII intact. Sensorimotor and cerebellar normal. Normal tone. Course - Re-evaluation Re-evalutation: 10/23/19 19:57 Patient was given 1 dose of Zofran ODT here with complete resolution of symptoms. Clinically I think she is likely to have a bacterial enteritis on the basis of consumption of water with bacterial contamination. I believe she can safely be treated on an ambulatory basis with an oral antibiotic. - Vital Signs Vital signs: Temp Pulse Resp BP Pulse Ox 98.0 F 64 16 131/79 H 97 10/23/19 17:10 10/23/19 16:31 10/23/19 17:10 10/23/19 16:31 10/23/19 17:10 - Laboratory Result Diagrams: 10/23/19 17:26 10/23/19 17:26 Laboratory results interpreted by me: 10/23/19 10/23/19 10/23/19 17:26 17:26 17:26 WBC 3.5 L RDW 14.5 H Lymph % (Auto) 48.4 H [place] % (Auto) 15.3 H Absolute Neuts (auto) 1.2 L Seg Neutrophils % 34.1 L Potassium 3.4 L Urine Urobilinogen 2.0 H Discharge - Discharge Clinical Impression: Acute bacterial enteritis Condition: Stable Disposition: HOME, SELF-CARE Additional Instructions: Increase oral fluids. Take prescribed medication as directed. Return here as needed for new or worsening symptoms. Follow-up with [facility] within the next 2 to 3 days. Work note is been provided for you as discussed. Prescriptions: Ciprofloxacin HCl [Cipro 500 mg Tablet] 500 mg PO BID #6 tablet Metronidazole [Flagyl 500 mg Tablet] 500 mg PO Q6H #40 tablet Forms: Return to Work Referrals: SAMAN DAY PA-C [Primary Care Provider] - Follow up as needed
[2019-10-23 18:08] LABS: ABSOLUTE NEUT (AUTO) 1.2 10^3/uL (1.7-8.2); BASOPHILS % (AUTO) 0.5 % (0-2); HEMATOCRIT 38.6 % (36.0-47.0); HEMOGLOBIN 12.9 g/dL (12.0-15.5); LYMPHOCYTES % (AUTO) 48.4 % (13-45); MEAN CORPUSCULAR HEMOGLOBIN 27.6 pg (27.0-33.4); MEAN CORPUSCULAR HGB CONC 33.3 g/dL (32.0-36.0); MEAN CORPUSCULAR VOLUME 83 fl (80-97); MONOCYTES % (AUTO) 15.3 % (3-13); PLATELET COUNT 277 10^3/uL (150-450); RED BLOOD COUNT 4.67 10^6/uL (3.72-5.28); RED CELL DISTRIBUTION WIDTH 14.5 % (11.5-14.0); SEGMENTED NEUTROPHILS % (AUTO) 34.1 % (42-78); WHITE BLOOD COUNT 3.5 10^3/uL (4.0-10.5)
[2019-10-23 18:36] LABS: ALBUMIN 3.6 g/dL (3.5-5.0); ALKALINE PHOSPHATASE 57 U/L (38-126); ANION GAP 7 (5-19); ASPARTATE AMINO TRANSFERASE 26 U/L (14-36); BILIRUBIN,DIRECT 0.1 mg/dL (0.0-0.4); BILIRUBIN,TOTAL 0.4 mg/dL (0.2-1.3); BLOOD UREA NITROGEN 10 mg/dL (7-20); CALCIUM 8.9 mg/dL (8.4-10.2); CARBON DIOXIDE 28 mmol/L (22-30); CHLORIDE 107 mmol/L (98-107); GLUCOSE 102 mg/dL (75-110); POTASSIUM 3.4 mmol/L (3.6-5.0); TOTAL PROTEIN 7.2 g/dL (6.3-8.2)
[2019-10-23 20:56] VITALS: BP 117/71
== END 2019-10-23 20:58 | disposition home or self-care (01) ==
LOC: ER 16:28
DX: A04.9 Bacterial intestinal infection, unspecified (principal); R11.2 Nausea with vomiting, unspecified; I10 Essential (primary) hypertension
CPT/HCPCS: 99284; 36415; 87040; 83690; 84703; 85025; 80053; 81001; S0119

== ENCOUNTER 2020-07-01 05:41 | Emergency (ER) | payer BC ==
[2020-07-01 05:56] VITALS: BP 131/74
--- NOTE | 2020-07-01 08:12 | ER Document Report ---
Entered by FLAVIA LAURA SCRIBE 07/01/20 0701 Acting as scribe for:INDRA MELTON MD ED ENT - General Chief Complaint: Sore Throat Stated Complaint: SORE THROAT,CHILLS,HEADACHE,COUGH Time Seen by Provider: 07/01/20 06:09 Primary Care Provider: SAMAN DAY PA-C [Primary Care Provider] - Follow up as needed Information source: Patient Notes: This 45 year old female patient presents to the emergency department today with a sore throat for the past x5 days. Patient states she has been exposed to strep at work and denies any known covid exposure. Patient reports a mild headache and productive cough with yellow sputum. Patient states she is prediabetic and the only medication she is on is for her HTN. TRAVEL OUTSIDE OF THE [place] IN LAST 30 DAYS: No - Related Data Allergies/Adverse Reactions: No Known Allergies Allergy (Verified 10/23/19 17:10) Past Medical History - General Information source: Patient - Social History Smoking Status: Never Smoker Cigarette use (# per day): No Family History: Reviewed & Not Pertinent - Past Medical History Cardiac Medical History: Reports: Hx Hypertension Endocrine Medical History: Reports: Hx Diabetes Mellitus Type 2 - "prediabetic" Past Surgical History: Reports: Hx Appendectomy, Hx Section - Immunizations Hx Diphtheria, Pertussis, Tetanus Vaccination: Yes - 2011 Review of Systems - Review of Systems Constitutional: No symptoms reported EENT: See HPI, Throat pain - x5 days Cardiovascular: No symptoms reported Respiratory: See HPI, Cough, Sputum - yellow Gastrointestinal: No symptoms reported Genitourinary: No symptoms reported Female Genitourinary: No symptoms reported Musculoskeletal: No symptoms reported Skin: No symptoms reported Hematologic/Lymphatic: No symptoms reported Neurological/Psychological: See HPI, Headaches - mild -: Yes All other systems reviewed and negative Physical Exam - Vital signs Vitals: Temp Pulse Resp BP Pulse Ox 98.1 F 58 L 20 131/74 H 100 07/01/20 05:53 07/01/20 05:53 07/01/20 05:53 07/01/20 05:53 07/01/20 05:53 - General General appearance: Appears well, Alert - HEENT Head: Normocephalic, Atraumatic Eyes: Normal Extraocular movements intact: Yes Pupils: PERRL Neck: Lymphadenopathy - Mild Notes: Erythema of tonsils bilaterally. No exudate. Tenderness with palpation to the left anterior cervical chain. - Respiratory Respiratory status: No respiratory distress Chest status: Nontender Breath sounds: Normal Chest palpation: Normal - Cardiovascular Rhythm: Regular Heart sounds: Normal auscultation, S1 appreciated, S2 appreciated Murmur: No - Abdominal Inspection: Obese, Other - Soft Distension: No distension Bowel sounds: Normal Tenderness: Nontender - Extremities General upper extremity: Normal inspection. No: Edema General lower extremity: Normal inspection. No: Edema - Neurological Neuro grossly intact: Yes Cognition: Normal Orientation: AAOx4 Speech: Normal - Psychological Associated symptoms: Normal affect, Normal mood - Skin Skin Temperature: Warm Skin Moisture: Dry Skin Color: Normal Course - Re-evaluation Re-evalutation: 07/01/20 08:06 Patient resting comfortably not showing any signs of distress. - Vital Signs Vital signs: Temp Pulse Resp BP Pulse Ox 98.1 F 58 L 20 131/74 H 100 07/01/20 05:53 07/01/20 05:53 07/01/20 05:53 07/01/20 05:53 07/01/20 05:53 - Laboratory Laboratory results interpreted by me: Laboratory shows a negative strep screen. Discharge - Discharge Clinical Impression: Acute pharyngitis Condition: Stable Disposition: HOME, SELF-CARE Instructions: Sore Throat ([facility]), Strep Throat ([facility]) Additional Instructions: Sore Throat Sore throats may be caused by viruses, bacteria, or fungi. Most are due to a virus, and must get better on their own. Bacterial sore throats, particularly those due to "strep," need treatment with antibiotics. If an antibiotic is prescribed, be sure to take the medication for a full 10 days. Failure to take the antibiotic can result in complications such as rheumatic fever. Sometimes, an injection of antibiotics is given instead of pills or liquid. This single "shot" is equal in effectiveness to the oral medication. To relieve symptoms, take acetaminophen for pain. Sip clear liquids frequently, or eat popsicles or ice chips. Anesthetic sprays or lozenges may help. Make sure the air in the room is not too dry. Avoid using decongestants or antihistamines. Call the doctor if there is no improvement in two days, or if you have difficulty breathing, increasing throat pain, high fever, rash, or frequent vomiting. Inasmuch as you have had exposure to a colleague at work who has strep decided to place you on antibiotics that would treat strep. Despite your test results being negative thought antibiotics would be in your best interest because of your exposure. Prescriptions: Amoxicillin 875 mg PO BID #20 tablet Ibuprofen [Ibu] 800 mg PO TID PRN 7 Days #21 tablet PRN Reason: prn pain/swelling/fever Forms: Return to Work Referrals: SAMAN DAY PA-C [Primary Care Provider] - Follow up as needed I personally performed the services described in the documentation, reviewed and edited the documentation which was dictated to the scribe in my presence, and it accurately records my words and actions.
== END 2020-07-01 10:10 | disposition home or self-care (01) ==
LOC: ER 05:41
DX: J02.9 Acute pharyngitis, unspecified (principal); R51 Headache; R05 Cough
CPT/HCPCS: 87070; 87880; 99283

== ENCOUNTER 2020-11-07 10:41 | Emergency (ER) | payer BC ==
--- NOTE | 2020-11-07 11:15 | ER Document Report ---
ED Medical Screen (RME) - General Chief Complaint: Neck Pain < 24hrs old Stated Complaint: FALL/BACK PAIN, CHEST PAIN Time Seen by Provider: 11/07/20 11:10 Primary Care Provider: SAMAN DAY PA-C [Primary Care Provider] - Follow up as needed Information source: Patient Notes: Patient states that she has been having chest pain off and on throughout the week. Patient states that 2:00 in the morning she had sharp chest pain that caused her to fall off of the ladder and she fell down 10 stairs. Patient complains of neck and upper back pain. Patient states chest pain at this time is resolved. Patient does report a history of hypertension. I have greeted and performed a rapid initial assessment of this patient. A comprehensive ED assessment and evaluation of the patient, analysis of test results and completion of the medical decision making process will be conducted by additional ED providers. TRAVEL OUTSIDE OF THE [place] IN LAST 30 DAYS: No - Related Data Allergies/Adverse Reactions: No Known Allergies Allergy (Verified 10/23/19 17:10) Home Medications: blood pressure medication Past Medical History - Social History Chew tobacco use (# tins/day): No Frequency of alcohol use: None Drug Abuse: None - Past Medical History Cardiac Medical History: Reports: Hx Hypertension Endocrine Medical History: Reports: Hx Diabetes Mellitus Type 2 - "prediabetic" Renal/ Medical History: Denies: Hx Peritoneal Dialysis Past Surgical History: Reports: Hx Appendectomy, Hx Section - Immunizations Hx Diphtheria, Pertussis, Tetanus Vaccination: Yes - 2011 Physical Exam - Vital signs Vitals: Temp Pulse Resp BP Pulse Ox 98.0 F 69 18 131/80 H 96 11/07/20 10:48 11/07/20 10:48 11/07/20 10:48 11/07/20 10:48 11/07/20 10:48 - Cardiovascular Rhythm: Regular Heart sounds: S1 appreciated, S2 appreciated - Back Back: Vertebra tenderness - Posterior cervical and upper thoracic midline tenderness. No: Deformity/step-off Course - Vital Signs Vital signs: Temp Pulse Resp BP Pulse Ox 98.0 F 69 18 131/80 H 96 11/07/20 10:48 11/07/20 10:48 11/07/20 10:48 11/07/20 10:48 11/07/20 10:48 Doctor's Discharge - Discharge Referrals: SAMAN DAY PA-C [Primary Care Provider] - Follow up as needed
[2020-11-07 11:50] LABS: ABSOLUTE LYMPHOCYTES (AUTO) 1.3 10^3/uL (0.5-4.7); ABSOLUTE MONOCYTES (AUTO) 0.6 10^3/uL (0.1-1.4); ABSOLUTE NEUT (AUTO) 1.1 10^3/uL (1.7-8.2); ALBUMIN 4.1 g/dL (3.5-5.0); ALKALINE PHOSPHATASE 77 U/L (38-126); ANION GAP 7 (5-19); ASPARTATE AMINO TRANSFERASE 28 U/L (14-36); BASOPHILS % (AUTO) 1.3 % (0-2); BILIRUBIN,DIRECT 0.1 mg/dL (0.0-0.4); BILIRUBIN,TOTAL 0.8 mg/dL (0.2-1.3); BLOOD UREA NITROGEN 9 mg/dL (7-20); CALCIUM 9.3 mg/dL (8.4-10.2); CARBON DIOXIDE 32 mmol/L (22-30); CHLORIDE 101 mmol/L (98-107); EOSINOPHILS % (AUTO) 1.2 % (0-6); GLUCOSE 98 mg/dL (75-110); HEMATOCRIT 39.9 % (36.0-47.0); HEMOGLOBIN 13.6 g/dL (12.0-15.5); MEAN CORPUSCULAR HEMOGLOBIN 28.3 pg (27.0-33.4); MEAN CORPUSCULAR HGB CONC 34.1 g/dL (32.0-36.0); MEAN CORPUSCULAR VOLUME 83 fl (80-97); MONOCYTES % (AUTO) 18.5 % (3-13); PLATELET COUNT 352 10^3/uL (150-450); POTASSIUM 3.2 mmol/L (3.6-5.0); RED CELL DISTRIBUTION WIDTH 14.5 % (11.5-14.0); TOTAL CELLS COUNTED % (AUTO) 100 %; TOTAL PROTEIN 7.9 g/dL (6.3-8.2)
--- NOTE | 2020-11-07 11:59 | RADIOLOGY REPORT (SQ) ---
EXAM DESCRIPTION: CHEST SINGLE VIEW IMAGES COMPLETED DATE/TIME: 11/07/2020 11:51 am REASON FOR STUDY: cp COMPARISON: 09/29/2019 EXAM PARAMETERS: NUMBER OF VIEWS: One view. TECHNIQUE: Single frontal radiographic view of the chest acquired. RADIATION DOSE: NA LIMITATIONS: None. FINDINGS: LUNGS AND PLEURA: No opacities, masses or pneumothorax. No pleural effusion. MEDIASTINUM AND HILAR STRUCTURES: No masses. Contour normal. HEART AND VASCULAR STRUCTURES: Heart normal in size. Normal vasculature. BONES: No acute findings. HARDWARE: None in the chest. OTHER: No other significant finding. IMPRESSION: NO ACUTE RADIOGRAPHIC FINDING IN THE CHEST. TECHNICAL DOCUMENTATION: JOB ID: [id number] 2010 [employer]- All Rights Reserved Reading location - IP/workstation name: [email or web address]
--- NOTE | 2020-11-07 12:00 | RADIOLOGY REPORT (SQ) ---
EXAM DESCRIPTION: T SPINE AP/LAT IMAGES COMPLETED DATE/TIME: 11/07/2020 11:51 am REASON FOR STUDY: fall, neck/back pain COMPARISON: None. NUMBER OF VIEWS: Two views. TECHNIQUE: AP and lateral radiographic images acquired of the thoracic spine. LIMITATIONS: None. FINDINGS: MINERALIZATION: Normal. ALIGNMENT: Thoracic scoliosis with concavity toward the left. VERTEBRAE: No fracture or bone lesion. Maintained height, normal segmentation. DISCS: No significant loss of height or significant narrowing. No large osteophytes. HARDWARE: None in the spine. MEDIASTINUM AND SOFT TISSUES: Normal heart size and aortic contour. No soft tissue abnormality. VISUALIZED LUNG PABLO: Clear. OTHER: No other significant finding. IMPRESSION: Mild thoracic scoliosis. No other significant findings. TECHNICAL DOCUMENTATION: JOB ID: [id number] 2010 [employer]- All Rights Reserved Reading location - IP/workstation name: [email or web address]
--- NOTE | 2020-11-07 12:00 | RADIOLOGY REPORT (SQ) ---
EXAM DESCRIPTION: CERV SP 4 OR 5 VIEWS IMAGES COMPLETED DATE/TIME: 11/07/2020 11:51 am REASON FOR STUDY: fall, neck/back pain COMPARISON: None. NUMBER OF VIEWS: Five views. TECHNIQUE: AP, lateral, obliques and odontoid radiographic images acquired of the cervical spine. LIMITATIONS: None. FINDINGS: MINERALIZATION: Normal. ALIGNMENT: Anatomic. VERTEBRAE: Vertebral bodies of normal height. DISCS: No significant osteophytes or sclerosis. Disc height maintained. FORAMINA: No osteophytes or foraminal narrowing. LATERAL AND POSTERIOR ELEMENTS: Facets, lateral masses and spinous processes without significant find ings. HARDWARE: None in the spine. SOFT TISSUES: No masses or calcifications. Lung apices clear. OTHER: No other significant finding. IMPRESSION: NO SIGNIFICANT RADIOGRAPHIC FINDING IN THE CERVICAL SPINE. TECHNICAL DOCUMENTATION: JOB ID: [id number] 2010 [employer]- All Rights Reserved Reading location - IP/workstation name: [email or web address]
--- NOTE | 2020-11-07 12:22 | ER Document Report ---
ED General - General Chief Complaint: Neck Pain < 24hrs old Stated Complaint: FALL/BACK PAIN, CHEST PAIN Time Seen by Provider: 11/07/20 11:10 Primary Care Provider: SAMAN DAY PA-C [Primary Care Provider] - Follow up as needed PITO COCHRAN MD [ACTIVE PROVISIONAL STAFF] - Follow up as needed Notes: CHIEF COMPLAINT: Chest pain, fall HPI: 45-year-old female presenting to the emergency department complaining of intermittent chest pain for 2 weeks. Comes and goes several times a day. Feels like a sharp stabbing sensation that will last for several seconds. No shortness of breath no radiation into the back neck arms or shoulders. Patient was not sure it might not be reflux as patient has been eating a lot of greasy foods lately. She denies any abdominal pain nausea or vomiting. Currently pain-free. States that she went to change a light on the top of her stairs this morning and had a sharp stabbing pain in the mid chest which caused her to fall down the stairs. States that she did not hit her head did not lose consciousness complaining of right lateral neck and trapezius discomfort as well as upper thoracic back pain. Denies extremity injury or pelvic or hip pain. Patient states she has not seen a director of primary nor has she taken any medications for her symptoms. ROS: See HPI - all other systems were reviewed and are otherwise negative Constitutional: no fever Eyes: no drainage, no blurred vision ENT: no runny nose, no sore throat Cardiovascular: + chest pain Resp: no SOB, no cough GI: no vomiting, no diarrhea, no abdominal pain : no dysuria Integumentary: no rash Allergy: no hives Musculoskeletal: no extremity pain or swelling, positive neck pain Neurological: no numbness/tingling, no weakness MEDICATIONS: I agree with the patient medications as charted by the RN. ALLERGIES: I agree with the allergies as charted by the RN. PAST MEDICAL HISTORY/PAST SURGICAL HISTORY: Reviewed and agree as charted by RN. SOCIAL HISTORY: Reviewed and agree as charted by RN. FAMILY HISTORY: No significant familial comorbid conditions directly related to patient complaint EXAM: Reviewed vital signs as charted by RN. CONSTITUTIONAL: Alert and oriented and responds appropriately to questions. Well-appearing; well-nourished HEAD: Normocephalic; atraumatic EYES: PERRL; Conjunctivae clear, sclerae non-icteric ENT: normal nose; no rhinorrhea; moist mucous membranes; pharynx without lesions noted, no uvula edema or deviation, no tonsillar hypertrophy, phonation normal NECK: Supple without meningismus; non-tender directly over the cervical spine; no cervical lymphadenopathy, no masses. There is mild right lateral cervical muscular tenderness into the right trapezius region with palpation CARD: RRR; no murmurs, no clicks, no rubs, no gallops; symmetric distal pulses RESP: Normal chest excursion without splinting or tachypnea; breath sounds clear and equal bilaterally; no wheezes, no rhonchi, no rales, pulse oximetry 98% on room air not hypoxic ABD/GI: Normal bowel sounds; non-distended; soft, non-tender, no rebound, no guarding; no palpable organomegaly or masses. BACK: The back appears normal and is non-tender to palpation directly over the thoracic and lumbar spine there is no CVA tenderness EXT: Normal ROM in all joints; non-tender to palpation; no cyanosis, no effusions, no edema SKIN: Normal color for age and race; warm; dry; good turgor; no acute lesions noted NEURO: Moves all extremities equally; Motor and sensory function intact PSYCH: The patient's mood and manner are appropriate. Grooming and personal hygiene are appropriate. MDM: EKG normal sinus rhythm with a ventricular rate of 65, IN 124, QT 384, QTc 400. No other visible ectopy. Normal EKG, interpreted by emergency department physician. 45-year-old female presenting for 2 weeks of intermittent seconds long episodes of stabbing chest discomfort without radiation or other associated symptoms. Pain-free at this time, initial screening lab work, EKG, chest x-ray negative for acute findings. Patient has a heart score of 2. While I have low suspicion this is cardiac I did speak with the patient at length about this and will refer her to cardiology for outpatient evaluation and stress test. I will place the patient on Protonix given her concern for reflux and did advise the patient about diet. She is requesting days off from work. TRAVEL OUTSIDE OF THE [place] IN LAST 30 DAYS: No - Related Data Allergies/Adverse Reactions: No Known Allergies Allergy (Verified 11/07/20 12:07) Home Medications: blood pressure medication Past Medical History - General Information source: Patient - Social History Smoking Status: Never Smoker Chew tobacco use (# tins/day): No Frequency of alcohol use: None Drug Abuse: None Family History: Reviewed & Not Pertinent - Past Medical History Cardiac Medical History: Reports: Hx Hypertension Endocrine Medical History: Reports: Hx Diabetes Mellitus Type 2 - "prediabetic" Renal/ Medical History: Denies: Hx Peritoneal Dialysis Past Surgical History: Reports: Hx Appendectomy, Hx Section - Immunizations Hx Diphtheria, Pertussis, Tetanus Vaccination: Yes - 2011 Physical Exam - Vital signs Vitals: Temp Pulse Resp BP Pulse Ox 98.0 F 69 18 131/80 H 96 11/07/20 10:48 11/07/20 10:48 11/07/20 10:48 11/07/20 10:48 11/07/20 10:48 Course - Vital Signs Vital signs: Temp Pulse Resp BP Pulse Ox 98.0 F 69 16 126/82 H 100 11/07/20 10:48 11/07/20 10:48 11/07/20 12:01 11/07/20 12:01 11/07/20 12:01 - Laboratory Results Result Diagrams: 11/07/20 11:18 11/07/20 11:18 Laboratory Results Interpreted: 11/07/20 11/07/20 11:18 11:18 WBC 3.0 L RDW 14.5 H [place] % (Auto) 18.5 H Absolute Neuts (auto) 1.1 L Seg Neutrophils % 35.0 L Potassium 3.2 L Carbon Dioxide 32 H Critical Laboratory Results Reviewed: No Critical Results - Radiology Results Critical Radiology Results Reviewed: No Critical Results Discharge - Discharge Clinical Impression: Hypokalemia Chest pain Qualifiers: Chest pain type: unspecified Qualified Code(s): R07.9 - Chest pain, unspecified Cervical strain, acute Qualifiers: Encounter type: initial encounter Qualified Code(s): S16.1XXA - Strain of muscle, fascia and tendon at neck level, initial encounter Acute thoracic myofascial strain Qualifiers: Encounter type: initial encounter Qualified Code(s): S29.019A - Strain of muscle and tendon of unspecified wall of thorax, initial encounter Fall Qualifiers: Encounter type: initial encounter Qualified Code(s): W19.XXXA - Unspecified fall, initial encounter Condition: Stable Disposition: HOME, SELF-CARE Instructions: Chest Pain of Unclear Cause ([facility]), Antacid Therapy ([facility]) Additional Instructions: Avoid greasy or spicy foods. Take the Protonix as prescribed. Tylenol or M otrin for neck and back discomfort. Follow-up with cardiology for outpatient evaluation of your chest discomfort. Your lab work and imaging studies today did not show acute findings in the emergency department if you have worsening or recurrent pain return for reevaluation Prescriptions: Pantoprazole Sodium [Protonix [address] Tablet] 20 mg PO DAILY #30 tablet.dr Forms: Return to Work Referrals: SAMAN DAY PA-C [Primary Care Provider] - Follow up as needed PITO COCHRAN MD [ACTIVE PROVISIONAL STAFF] - Follow up as needed
[2020-11-07] MEDS ORDERED: POTASSIUM CHLORIDE 10 MEQ TABLET.ER PO ONE (12:24)
[2020-11-07 12:41] VITALS: BP 125/97
--- NOTE | 2020-11-07 15:12 | EKG REPORT ---
SEVERITY:- NORMAL ECG - SINUS RHYTHM : Confirmed by: Mohinder Jennings MD 07-Nov-2020 15:11:18
== END 2020-11-07 12:43 | disposition home or self-care (01) ==
LOC: ER 10:41
DX: S16.1XXA Strain of muscle, fascia and tendon at neck level, initial encounter (principal); S29.019A Strain of muscle and tendon of unspecified wall of thorax, initial encounter; E87.6 Hypokalemia; M54.2 Cervicalgia; M54.9 Dorsalgia, unspecified; R07.9 Chest pain, unspecified; M54.6 Pain in thoracic spine; W19.XXXA Unspecified fall, initial encounter; I10 Essential (primary) hypertension; E11.9 Type 2 diabetes mellitus without complications; Z79.899 Other long term (current) drug therapy
CPT/HCPCS: 36415; 71045; 72050; 72070; 80053; 84484; 85025; 93005; 93010; 99285